=== PATIENT | female | born 2000 | race Hispanic/Latino ===

== ENCOUNTER 2020-05-11 11:28 | Emergency (ER) | payer SELFPAY ==
[2020-05-11 11:44] VITALS: BP 138/98; PULSE 79; RESP 16; TEMP 36.8; O2SAT 99
[2020-05-11 12:27] LABS: Add Urine Microscopic? YES; Appearance Urine Cloudy (Clear); Bacteria Urine Trace /hpf; Bilirubin Urine Negative (Negative); Blood Urine 3+ (Negative); Color Urine Yellow (Yellow); Glucose Urine UA Negative (Negative); Ketones Urine Negative (Negative); Leukocyte Esterase Ur Negative LEU/UL (Negative); Mucus Urine Rare /lpf; Nitrate Urine Negative (Negative); Protein Urine Negative (Negative); Specific Grav Ur 1.015 (1.001-1.035); Squamous Epithelial Cell Urine Moderate /hpf (Few); Urobilinogen Urine Negative mg/dL (<2.0)
--- NOTE | 2020-05-11 12:54 | ED.GENADULT ---
HPI - General Adult General Chief complaint: Recheck/Abnormal Lab/Rx <Roddy Xiao PA-C - Last Filed: 05/11/20 12:58> Stated complaint: STD check <Roddy Xiao PA-C - Last Filed: 05/11/20 12:58> Time Seen by Provider: 05/11/20 11:33 <Roddy Xiao PA-C - Last Filed: 05/11/20 12:58> Source: patient <Roddy Xiao PA-C - Last Filed: 05/11/20 12:58> Mode of arrival: ambulatory <Roddy Xiao PA-C - Last Filed: 05/11/20 12:58> Limitations: no limitations <Roddy Xiao PA-C - Last Filed: 05/11/20 12:58> History of Present Illness HPI narrative: Patient is a 20-year-old female who presents for desire for testing and treatment of possible STD noting some vaginal irritation suprapubic discomfort that is been present now for the last several days also noting foul odor has not been seen for this complaint would like to be tested and treated has no other complaints or concerns and on arrival is resting comfortably in the room in no distress <Roddy Xiao PA-C - Last Filed: 05/11/20 12:58> Related Data Home medications: Home Medications Medication Instructions Recorded Confirmed No Home Medications 05/11/20 05/11/20 <Roddy Xiao PA-C - Last Filed: 05/11/20 12:58> Allergies/adverse reactions: Allergies Allergy/AdvReac Type Severity Reaction Status Date / Time No Known Allergies Allergy Verified 05/11/20 11:55 <Roddy Xiao PA-C - Last Filed: 05/11/20 12:58> Review of Systems Review of Systems: All systems reviewed & are unremarkable except as noted in HPI and below <Roddy Xiao PA-C - Last Filed: 05/11/20 12:58> [facility] Social History Social History: Social History Smoking status: Current every day smoker Gender identity (if verbalized by the patient): Female <Roddy Xiao PA-C - Last Filed: 05/11/20 12:58> Exam Narrative: Exam Narrative: GENERAL: Well-appearing, well-nourished, and in no acute distress. HEAD: Normocephalic, atraumatic. EYES: PERRLA and EOMI. ENT: Nares clear, no rhinorrhea or epistaxis. Mucous membranes moist. CHEST: Clear to auscultation. No respiratory distress. No wheezes rales or rhonchi HEART: Regular rate and rhythm. No murmur heard. Normal peripheral pulses. ABDOMEN: Soft, nontender, nondistended FEMALE GENITOURINARY: Patient with some slight blood in the vaginal vault otherwise unremarkable exam EXTREMITIES: Normal range of motion. No edema. SKIN: Warm, dry, no rash. NEURO: No focal deficits. Alert and oriented x3. PSYCH: Normal mood and affect. <PEGGY Garcia Last Filed: 05/11/20 12:58> Course Course Emergency Course: Patient in the room in no distress aware of case findings treatment plan and diagnosis agreeing to follow-up as directed provided with reasons to return <PEGGY Garcia Last Filed: 05/11/20 12:58> Vital Signs Vital signs: Vital Signs Temperature 98.3 F 05/11/20 11:44 Pulse Rate 79 05/11/20 11:44 Respiratory Rate 16 05/11/20 11:44 Blood Pressure 138/98 H 05/11/20 11:44 Pulse Oximetry 99 05/11/20 11:44 Temperature 98.3 F 05/11/20 11:44 Pulse Rate 69 05/11/20 13:19 Respiratory Rate 16 05/11/20 13:19 Blood Pressure 119/59 L 05/11/20 13:19 Pulse Oximetry 100 05/11/20 13:19 <PEGGY Garcia Last Filed: 05/11/20 12:58> Vital Signs Temperature 98.3 F 05/11/20 11:44 Pulse Rate 79 05/11/20 11:44 Respiratory Rate 16 05/11/20 11:44 Blood Pressure 138/98 H 05/11/20 11:44 Pulse Oximetry 99 05/11/20 11:44 Temperature 98.3 F 05/11/20 11:44 Pulse Rate 69 05/11/20 13:19 Respiratory Rate 16 05/11/20 13:19 Blood Pressure 119/59 L 05/11/20 13:19 Pulse Oximetry 100 05/11/20 13:19 <Bri Rogers MD - Last Filed: 05/11/20 16:18> Medical Decision Making MDM Narrative Medical decision charlie
[2020-05-11] MEDS: cefTRIAXone 250 MG VIAL IM (13:12)
[2020-05-11] MEDS: LIDOCAINE HCL 1% LOCAL INJ 20 ML VIAL (13:12)
[2020-05-11] MEDS: AZITHROMYCIN 250 MG TABLET 1000 MG PO (13:13)
[2020-05-11] MEDS: metroNIDAZOLE 250 MG TABLET 2000 MG PO (13:13)
[2020-05-11 13:19] VITALS: BP 119/59; PULSE 69; RESP 16; O2SAT 100
== END 2020-05-11 13:20 | disposition home or self-care (01) ==
PROVIDERS: Emergency Medicine Emergency Medical Services; Emergency Provider Emergency Medicine
DX: N76.0 Acute vaginitis (principal)
CPT/HCPCS: 81001; 81025; 87070; 87491; 87591; 87808; 96372; 99284; A9270; J0696

== ENCOUNTER 2024-10-28 14:16 | Outpatient (CLI) | payer MEDICAID, SELFPAY | END 2024-10-28 14:17 | disposition home or self-care (01) | LOC: ANHLAB 14:23 | PROVIDERS: Visit Provider Obstetrics & Gynecology | DX: N91.2 Amenorrhea, unspecified (principal) | CPT/HCPCS: 36415; 84702 ==

== ENCOUNTER 2024-12-10 13:09 | Outpatient (CLI) | payer MEDICAID, SELFPAY ==
[2024-12-10 15:21] LABS: Glucose 1 Hour PP 50gm Dose 130 mg/dL
--- OUTSIDE RECORDS SUMMARY | 2024-12-12 00:59 | XMS_ITS | Encounter Summary ---
Author Organization [facility] Address [address] [place] [address] Care Team Providers Care Agricultural Technician Name Role Phone Unavailable Primary Care Provider Unavailabl e Reason for Referral * Consultation (Routine) - Authorized Specialty Diagnoses / Procedures Referred By Jyoti toledo Referred To Contact UTILITY DRIVER Oncology Diagnoses Ovarian cyst affecting , antepartum (HCC) 17 weeks gestation of (HCC) Vinicius Cavanaugh MD [address] [address] Referral ID Status Reason Start Date Expiration Date Visits Requested Visits Authorized [id number] Authorized Specialty Services Required 12/10/2024 12/10/2025 3 3 Scheduling Instructions Please schedule patient as soon as possible due to her being [id number] and possible need for surgery prior to 23-24 weeks EGA. Y CHILDHOOD TEACHER ASSISTANT * (Routine) - Open Specialty Diagnoses / Procedures Referred By Contra t Referred To Contact Diagnoses Ovarian cyst affecting , antepartum (HCC) Elevated hemoglobin A1c Encounter for anatomic survey ([facility]) Supervision of normal first , antepartum (HCC) Procedures SONOGRAM - COMPLETE Kylah Oreilly MD [address] [place] [address] Referral ID Status Reason Start Date Expiration Date Visits Re quested Visits Authorized [id number] Open 12/08/2024 12/08/2025 1 1 Y CHILDHOOD TEACHER ASSISTANT Encounter Details Date Type Department Care Team (Latest Contact Info) Description 12/10/2024 9:00 AM EARLY CHILDHOOD TEACHER ASSISTANT - 12/10/2024 9:17 AM EARLY CHILDHOOD TEACHER ASSISTANT Hospital Encounter [facility] [address] [place] [address] Vinicius Cavanaugh MD [address] [facility] [address] [place] [id number] Discharge Disposition: Home or Self Care Social History Tobacco Use Types Packs/Day Years Used Date Smoking Tobacco: Former Cigarettes Smokeless Tobacco: Never Alcohol Use Standard Drinks/Week Comments Not Currently 0 (1 standard drink = 0.6 oz pur e alcohol) Estimated Date of Delivery Comme nts Yes 05/16/2025 Based on Ultraso und Sex and Gender Information Value Date Recorded Sex Assigned at Not on file Gender Identity Not on file Sexual Orientation Not on file documented as of this encounter Plan of Treatment Upcoming Encounters Date Type Department Care Team (Late st Contact Info) Description 12/15/2024 1:00 PM EARLY CHILDHOOD TEACHER ASSISTANT Office Visit [facility] [employer] [address] [facility] [address] [place] [phone] Manuelito Escalona MD [address] [facility] [address] [place] [address] 01/07/2025 2:30 PM EARLY CHILDHOOD TEACHER ASSISTANT Appointment [facility] [address] [place] [id number] Scheduled Orders Name Type Priority Associated Diagnoses Orde r Schedule GLUCOSE CHALLENGE Lab Routine Ovarian cyst affecting , antepartum (HCC) 1 Occurrences starting 12/10/2024 until 12/05/2025 Scheduled Referrals Name Type Priority Associated Diagnoses Order Schedule AMB REFERRAL TO UTILITY DRIVER ONCOLOGY Outpatient Referral Routine Ovarian cyst affecting , antepartum (HCC) 17 weeks gestation of (HCC) 1 Occurrences starting 12/10/2024 until 12/10/2025 documented as of this encounter Procedures Procedure Name Priority Date/Time Associated Diagnosis Comments SONOGRAM - COMPLETE Routine 12/10/2024 9 :21 AM EARLY CHILDHOOD TEACHER ASSISTANT Ovarian cyst affecting , antepartum (HCC) Elevated hemoglobin A1c Encounter for anatomic survey ([facility]) Supervision of normal first , antepartum ([facility]) documented in this encounter Results * SONOGRAM - COMPLETE (12/10/2024 9:21 AM EARLY CHILDHOOD TEACHER ASSISTANT) Linked Results Indication ======== Maternal multicystic pelvic mass on outside scan Class I Obesity, On 11/18/2024 HgbA1c = 5.9% History ====== OB History ? 1 Lab Tests Test ? Date ? Result NIPT ? Low risk, Female Maternal Assessment Physical Exam ??Height 180 cm, 5 ft 11 in. Weight 112 kg, 248 lb. Initial weight 109 kg, 241 lb. BMI 34.59 kg/m?. Initial BMI 33.61 kg/m?. Weight gain 3 kg, 7 lb Method ====== Transabdominal and transvaginal ultrasound. View: Sufficient ========= Guthrie . Number of fetuses: 1 Dating ====== ? Date ?Details ? Gest. age ? ENE Stated ENE ? 17 w + 4 d ?05/16/2025 U/S ?12/10/2024 ? based upon AC, BPD, Femur, HC ? 17 w + 3 d ?05/17/2025 Assigned dating based on stated ENE, selected on 12/10/2024 ?17 w + 4 d ?05/16/2025 General Evaluation Cardiac activity present. FHR 149 bpm. Presentation: breech Placenta: Placental site: anterior Umbilical cord: Cord vessels: 3 vessel cord. Insertion site: normal insertion Amniotic fluid: Amount of AF: normal. MVP 3.0 cm Biometry BPD ?38.4 ?mm ?17w 5d ??56% ? Hadlock HC ? 139.0 ?? mm ?17w 2d ??26% ? Hadlock Cerebellum tr ?16.9 ?mm ?35% ? [place] AC ? 114.0 ?? mm ?17w 1d ??35% ? Hadlock Femur ?25.4 ?mm ?17w 5d ??50% ? Hadlock Humerus ?25.8 ?mm ?18w 1d ??78% ? Denise HC / AC ?1.22 ?14w 4d ??71% ? Hadlock Weight Calculation: EFW ?194 ? g ? 34% ? Hadlock EFW (lb,oz) ?0 lb 7 ??oz EFW by ? Hadlock ([id number]) appropriate Growth Overview Exam date ?GA ?BPD (mm) ?HC (mm) AC (mm) FL (mm) HL (mm) EFW (g) 12/10/2024 ? 17w 4d ??38.4 ?56% ? 139 ? 26% ? 114 ? 35% ? 25.4 ?50% ? 25.8 ?78% ? 194 ? 34% Anatomy The following structures appear normal: Head / Neck ?Cranium. Lateral ventricles. Choroid plexus. Cerebellum. Heart / Thorax 4-chamber view. Abdomen ?Cord insertion. Stomach. Kidneys. Bladder. Extremities / Skeleton Arms. Legs. Maternal Structures Cervix ? reassuring ? Approach - Transvaginal: Cervical length 4.50 cm Right Ovary ?Visualized Left Ovary ? Not visualized Impression ========= * Guthrie IUP at 17 weeks of gestation by stated EDC from early U/S * Referred to [facility] for obstetrical U/S & request for consult secondary to: Maternal pelvic mass * Today's ultrasound (U/S) findings: Living guthrie intrauterine fetus growth is in the normal range Amniotic fluid volume appears normal Basic anatomic survey appears normal, but is incomplete Endovaginal U/S was performed to better assess cervix & placenta & pelvic mass Functional cervical length is normal-range Placenta is clear of the internal cervical os by > 2 cm Maternal pelvic retro-uterine multiseptated cystic adnexal masses Overal size [id number] mm, cyst diameter measures up to 25 mm Unable to view normal LT and RT ovaries Findings are most c/w theca lutein cysts, but cannot rule out other entities COUNSELING & RECOMMENDATIONS (PLEASE SEE FULL CONSULT IN EPIC) * In my best medical opinion, I would advise: Regarding the maternal pelvic mass: The mass appears most c/w theca lutein cysts, but not typical presentation I am concerned about later development of symptoms & obstruction of labor My inclination would be surgery, but will refer SHERI & defer to UTILITY DRIVER/ONC At present we will not order serum tumor markers Smoking (cigarettes, cannabis) cessation was strongly encouraged Start low-dose aspirin preeclampsia prophylaxis 162 mg/day Screen early for gestational diabetes mellitus (GDM); if negative, repeat @ 24-28 weeks Comprehensive anatomic survey with MFM & FRONT END UI DEVELOPER visit at 21 weeks Delivery planning (timing, mode, location): too early to determine at present Follow-up ======== comprehensive anatomy in 4 weeks Coding ====== Procedures ? 78534: US Preg Uterus >14 weeks ? 39135: US Preg Uterus Transvaginal LINK PACS Anatomical Region Laterality Modality Other 12/10/2024 9:21 AM EARLY CHILDHOOD TEACHER ASSISTANT R Pal Oreilly MD MFM ORDERABLES documented in this encounter Visit Diagnoses Diagnosis 17 weeks gestation of (HCC)- Primary state, incidental Ovarian cyst affecting , antepartum (HCC) Elevated hemoglobin A1c Other abnormal blood chemistry Encounter for anatomic survey (HCC) Encounter for anatomic survey Supervision of normal first , antepartum (HCC) documented in this encounter
--- OUTSIDE RECORDS SUMMARY | 2024-12-12 00:59 | XMS_ITS | Patient Health Summary ---
Author Organization [facility] Address [address] [facility] [place] [address] Care Team Providers Care Veneer Clipper Helper Name Role Phone Unavailable Primary Care Provider Unavailabl e [facility]non-owned Affiliates and Associated Physician Practices is amultiple site organization consisting of ambulatory clinics and hospital sitesin [place], [place] and [place]. This disclosure is being madepursuant to the Care Everywhere program and may not contain all information available regarding this patient. Last updated 18.[facility] DNA SEQ Allergies No known active allergies Medications * Be aware that medications may not be up to date on this document. Alwaysverify current medications with the patient. * Vit-DSS-Fe Fum-FA ( vitamin with iron) tablet Take 1 (one) tablet by mouth once daily Reasons: * calcium carbonate (Caltrate) 600 MG tablet Take 1 (one) tablet by mouth daily with food * ondansetron (Zofran) 4 MG tablet Take 1 (one) tablet by mouth every 6 hours as needed for Nausea/Vomiting Takes PRN, not needed today 12/10/24 Reasons: Nausea and Vomiting in * vitamin D3 (Cholecalciferol) 10 MCG (400 UNIT) tablet Take 1 (one) tablet by mouth once daily Social History Tobacco Use Types Packs/Day Years [...] on file Sexual Orientation Not on file Last Filed Vital Signs Vital Sign Reading Time Taken Comments Blood Pressure 116/67 12/10/2024 10:02 AM DREDGE MATE Pulse 78 12/10/2024 10:02 AM DREDGE MATE Temperature - - Respiratory Rate - - Oxygen Saturation 100% 12/10/2024 10:02 AM DREDGE MATE Inhaled Oxygen Concentration - - Weight 112.5 kg (248 lb) 12/10/2024 10:02 AM DREDGE MATE Height 181.6 cm (5' 11.5 ) 12/10/2024 10:[address] Body Mass Index 34.11 12/10/2024 10:02 AM DREDGE MATE Procedures * SONOGRAM - COMPLETE(Performed 12/10/2024) Performed for Ovarian cyst affecting , antepartum ([facility]), Elevated hemoglobin A1c, Encounter for anatomic survey ([facility]), Supervision of normal first , antepartum ([facility]) Results * SONOGRAM - COMPLETE (12/10/2024 9:21 AM DREDGE MATE) Linked Results Indication ======== Maternal multicystic pelvic [...] lb 7 ??oz EFW by ? Hadlock ([id number]) appropriate Growth Overview Exam date ?GA ?BPD [...] EDC from early U/S * Referred to [facility] for obstetrical U/S & request for [...] retro-uterine multiseptated cystic adnexal masses Overal size [id number] mm, cyst diameter measures up to 25 [...] but will refer SHERI & defer to SKIDDER LOADER/ONC At present we will not order serum tumor markers Smoking (cigarettes, cannabis) cessation was strongly encouraged Start low-dose aspirin preeclampsia prophylaxis 162 mg/day Screen early for gestational diabetes mellitus (GDM); if negative, repeat @ 24-28 weeks Comprehensive anatomic survey with MFM & LAMINATING MACHINE OPERATOR visit at 21 weeks Delivery planning (timing, mode, location): too early to determine at present Follow-up ======== comprehensive anatomy in 4 weeks Coding ====== Procedures ? 24032: US Preg Uterus >14 weeks ? 10316: US Preg Uterus Transvaginal Yunait PACS Anatomical Region Laterality Modality Other 12/10/2024 9:21 AM DREDGE MATE R Pal Oreilly MD M ORDERABLES
--- OUTSIDE RECORDS SUMMARY | 2024-12-12 00:59 | XMS_ITS | Referral Summary ---
Author Organization [facility] Address [address] [place] [address] Care Team Providers Care Gift Officer Name Role Phone Joaquin Santos MD Primary Care Provider [phone] Allergies No known active allergies Medications hydrOXYzine (VISTARIL) 25 mg capsule Take 25 mg by mouth 3 (three) times a day as needed for itching Active Social History Tobacco Use Types Packs/Day Years Used Date Smoking Tobacco: Some Days Cigarettes Smokeless Tobacco: Never Alcohol Use Standard Drinks/Week Comments Yes 0 (1 standard drink = 0.6 oz pur e alcohol) Personal Safety Answer Date Recorded Have you ever been in or are you currently in a harmful physical or emotional relationship or is someone making you feel afraid or unsafe? Denies 05/13/2024 Comments No Sex and Gender Information Value Date Recorded Sex Assigned at Not on file Legal Sex Female 6:51 PM SURGICAL PRODUCT SALES CONSULTANT Gender Identity Not on file Sexual Orientation Not on file Last Filed Vital Signs Vital Sign Reading Time Taken Comments Blood Pressure 133/83 05/13/2024 3:48 PM CDT Pulse 52 05/13/2024 3:48 PM CDT Temperature 37.1 ??C (98.8 ??F) 05/13/2024 1:24 PM CD T Respiratory Rate 18 05/13/2024 3:48 PM CDT Oxygen Saturation 96% 05/13/2024 3:48 PM CDT Inhaled Oxygen Concentration - - Weight 108.9 kg (240 lb 1.3 oz) 05/13/2024 1:24 PM CDT Height 180.3 cm (5' 11 ) 05/13/2024 1:24 PM CDT Body Mass Index 33.48 05/13/2024 1:24 PM CDT Plan of Treatment Not on file Insurance IDPA Care Teams Gift Officer Relationship Specialty Start Date End Date Joaquin Santos MD PCP - General 12/18/19
--- OUTSIDE RECORDS SUMMARY | 2024-12-12 00:59 | XMS_ITS | Encounter Summary ---
Author Organization [facility] Address [address] [place] [address] Care Team Providers Care 2Nd Pressman Name Role Phone Unavailable Primary Care Provider Unavailabl e Reason for Referral * Consultation (Routine) - Authorized Specialty Diagnoses / Procedures Referred By Contac t Referred To Contact Diagnoses Ovarian cyst affecting , antepartum (HCC) Elevated hemoglobin A1c Encounter for anatomic survey (HCC) Supervision of normal first , antepartum (HCC) Kylah Oreilly MD [address] [place] [address] Referral ID Status Reason Start Date Expiration Date Visits Requested Visits Authorized [id number] Authorized Specialty Services Required 12/08/2024 12/08/2025 3 3 TRONICS PROCESSING SUPERVISOR * (Routine) - Open Specialty Diagnoses / Procedures Referred By Jyoti toledo Referred To Contact Diagnoses Ovarian cyst affecting , antepartum (HCC) Elevated hemoglobin A1c Encounter for anatomic survey (HCC) Supervision of normal first , antepartum (HCC) Procedures SONOGRAM - COMPLETE Kylah Oreilly MD [address] [place] [address] Referral ID Status Reason Start Date Expiration Date Visits Re quested Visits Authorized [id number] Open 12/08/2024 12/08/2025 1 1 TRONICS PROCESSING SUPERVISOR Reason for Visit * Reason Comments Ultrasound Maternal Medicine Consultation Encounter Details Date Type Department Care Team (Latest Contact Info) Description 12/10/2024 9:18 AM ELECTRONICS PROCESSING SUPERVISOR - 12/10/2024 11:59 PM ELECTRONICS PROCESSING SUPERVISOR Hospital Encounter [facility] [address] [id number] Vinicius Cavanaugh MD [address] [address] Discharge Disposition: Home or Self Care Social [...] on file documented as of this encounter Last Filed Vital Signs Vital Sign Reading Time Taken Comments Blood Pressure 116/67 12/10/2024 10:02 AM ELECTRONICS PROCESSING SUPERVISOR Pulse 78 12/10/2024 10:02 AM ELECTRONICS PROCESSING SUPERVISOR Temperature - - Respiratory Rate - - Oxygen Saturation 100% 12/10/2024 10:02 AM ELECTRONICS PROCESSING SUPERVISOR Inhaled Oxygen Concentration - - Weight 112.5 kg (248 lb) 12/10/2024 10:02 AM ELECTRONICS PROCESSING SUPERVISOR Height 181.6 cm (5' 11.5 ) 12/10/2024 10:02 AM C Body Mass Index 34.11 12/10/2024 10:02 AM ELECTRONICS PROCESSING SUPERVISOR documented in this encounter Medications at Time of Discharge Medication Sig Dispensed Refills Start Date End Date calcium carbonate (Caltrate) 600 MG tablet Take 1 (one) tablet by mouth daily with food ondansetron (Zofran) 4 MG tabletIndications:Nausea and/or Vomiting in Take 1 (one) tablet by mouth every 6 hours as needed for Nausea/Vomiting Takes PRN, not needed today 12/10/24 Reasons: Nausea and Vomiting in Vit-DSS-Fe Fum-FA ( vitamin with iron) tabletIndications:Pregna ncy Take 1 (one) tablet by mouth once daily Reasons: vitamin D3 (Cholecalciferol) 10 MCG (400 UNIT) tablet Take 1 (one) tablet by mouth once daily documented as of this encounter Progress Notes * Alisa Roland RN - 12/10/2024 10:06 AM CST Patient here with sig. Other, Arun for provider visit and ultrasound . Denies contractions, deniesbleeding, leakage of fluid, and starting to feel good movement. RN reviewed preeclampsia precautions and baby blues, handouts given. Patient reports headaches and visual disturbances at times due to ocular migraines. Denies it today. Denies RUQ pain. 12/10/24 Low risk/ Fe, NIPT seen in care everywhere. Patient's mother and father have hypertension. She reports she has been told in past that she had elevated blood pressures, however, no official diagnosis. Patient blood pressure today is WNL. Blood pressure on 11/18/24 at primary OB office was 106/71. Patient reports her HgA1c was elevated in beginning of and OB told her she will have early 1 hr GCT around 20 weeks. Urine dip today negative ketones, protein, glucose, leukoyctes and blood. Patient Vitals for the past 6 hrs: Pulse BP 12/10/24 1002 78 116/[address] Cavanaugh for patient to have 1 hr GCT and sheri appt to box office attendant oncology for ovarian cyst. 1 Hr GCT lab requisition was sent with patient today. Patient informed that box office attendant onco will reach outto her to schedule. In basket sent to OB BL box office attendant onco schedulers as well as Joyce Morales. Alisa Roland RN 12/10/2024 10:08 AM TRONICS PROCESSING SUPERVISOR documented in this encounter Consult Notes * Vinicius Cavanaugh MD - 12/10/2024 11:22 AM CST M CONSULT * Guthrie IUP at 17 weeks of gestation by stated EDC from early U/S * Referred to [facility] for obstetrical U/S & request for consult [...] retro-uterine multiseptated cystic adnexal masses Overal size [id number] mm, cyst diameter measures up to 25 mm Unable to view normal LT and RT ovaries Findings are most c/w theca lutein cysts, but cannot rule out other entities PAST MEDICAL & OBSTETRICAL HISTORY * Medications: vitamins & calcium & D3 & PRN Zofran * Past Medical History (PMH): No CHTN, no DM, no thyroidopathy, no asthma, no VTE, no SLE Pre- obesity Class I, BMI = 30.0-34.9 Maternal adnexal mass in Adnexal mass first diagnosed on 11/18/2024 at 14 week U/S Family history of ovarian or breast cancer: none History of medical ovulation induction: no Maternal age is currently 24 years Symptoms (e.g. pain): not at present, previously had RLQ cramping Laboratory data: no serum markers * Past Surgical History: tonsils * Past Gynecologic History: no conization, no LEEP, no D&C * Past Obstetrical History: G1 current , reportedly low-risk cf-DNA * Family history of anomalies, syndromes, MR, CA, etc: Her parents have DM and/or cHTN Her sister had surgery age 17 years teratoma * Social History: Quit tobacco & cannabis use * Physical Examination: BP = 116/67 mmHg, P = 78 bpm, Wt = 220# * Laboratory data: Today urine dipstick: glucose (0), ketones (0), protein (0), blood (0), leukocytes (0) I did review available laboratory results, on 11/18/2024 the HgbA1c = 5.9% ASSESSMENT Guthrie IUP at 17 weeks of gestation by stated EDC from early U/S Today's U/S shows a maternal large retro-uterine multicystic mass COUNSELING & RECOMMENDATIONS (PLEASE SEE FULL CONSULT IN EPIC) * In my best medical opinion, I would advise: Regarding the maternal pelvic mass: The mass appears most c/w theca lutein cysts, but not typical presentation I am concerned about later development of symptoms & obstruction of labor My inclination would be surgery, but will refer SHERI & defer to SPECIALTY FOODS COOK/ONC At present we will not order serum tumor markers Smoking (cigarettes, cannabis) cessation was strongly encouraged Start low-dose aspirin preeclampsia prophylaxis 162 mg/day Screen early for gestational diabetes mellitus (GDM); if negative, repeat @ 24- 28 weeks Comprehensive anatomic survey with MFM & DIRECTOR OF CLINICAL EDUCATION visit at 21 weeks Delivery planning (timing, mode, location): too early to determine at present COMMENTS * Thank you very much for requesting MF participation in her obstetrical care * Findings were explained & questions were addressed & precautions were given to patient * U/S does not detect all structural, genetic & functional [id number] abnormalities * Telemedicine services were performed for this U/S examination & MFM consultation Patient's identity was confirmed at the MFM office Appropriateness of the telehealth consult was confirmed Informed consent for telemedicine services was obtained & scanned into EMR Modality was secure interactive audio-video session using [email or web address] Patient site location was [facility] & nurse presenter was Aylin De Young Distant site provider was Vinicius Cavanaugh MD & location was home office Others present at the patient site included the patient's partner Consult = 45 minutes total time, including record review & counseling & coordination of care GENERAL NOTES REGARDING CLINICAL CONDITIONS * Adnexal mass in : Reported incidence is 0.1% to 3% of live births Majority of adnexal cysts in T1 resolve by early T2 Majority of persistent masses >= 5 cm are mature teratomas Risk of malignancy ranges & varies by risk factors Risk of malignancy in one study of 557 women: Simple masses ~ 1%, Complex masses ~ 9% Majority of malignant adnexal masses have a favorable prognosis Most have a low risk of malignancy or acute complications & may be managed expectantly Several studies have examined expectant management of adnexal masses in Most (51-92%) adnexal masses will resolve during Predictors of persistence: size > 5 cm and complex morphology on transvaginal U/S The occurrence of acute complications was < 2% Prevalence of adnexal masses in women is 0.05-3.2% of live births Most common pathologic diagnoses: mature teratomas & paraovarian or corpus luteum cysts Malignancy is diagnosed in 1 to 7% of patients with persistent masses A review of adnexal masses in ([place] 2022) reported: The most common types of adnexal masses in requiring surgical management are Dermoid cysts (32%), endometriomas (15%) Functional cysts (12%), serous cystadenomas (11%), mucinous cystadenomas (8%) Approximately 2% of adnexal masses in are malignant Evaluation by imaging techniques: Most cases of adnexal masses can be evaluated by U/S alone U/S findings that raise concern regarding malignancy include: Cyst size greater than 10 cm, Presence of ascites Papillary or solid components, irregularity, high color Doppler flow Pelvic MRI may be useful in some cases (e.g. suspected pedunculated uterine myoma) Serum cancer markers & : CEA, inhibin B, anti-M??llerian hormone are not affected by LDH usually is unaffected by , but can be increased with preeclampsia Cancer antigen 125 (CA 125) may be elevated during early gestation & immediately CA 125 is elevated in most cases of epithelial ovarian cancer (EOC) May be helpful as a tumor marker of EOC between 15 weeks & delivery In the range of 1,000 to 10,000 U/mL is likely (but not invariably) related to cancer In the range of 75 to 150 U/mL could be either -related or due to cancer Alpha-fetoprotein (AFP) can be elevated with ovarian germ cell tumor Inhibin A can be elevated with ovarian germ cell tumor Risks of management options include: Expectant: delayed diagnosis, torsion, rupture & distant spead, PTD, obstructed labor Surgery: small risk of miscarriage, especially if done in non-emergent circumstances Most adnexal masses in (2016 ACOG PB-174): Appear to have a low risk of malignancy or acute complications May be managed expectantly One approach to management of an adnexal mass in (UpToDate): Surgical resection of asymptomatic masses present after the 1st-trimester that: Have a diameter > 10 cm, or Contain concerning features (i.e. solid, solid/cystic, papillary, or septae) Laparoscopy & laparotomy may be considered for surgical management Expectant management of asymptomatic suspected corpus luteal cyst, endometrioma, mature teratoma Theca lutein cysts May also be referred to as lutein cysts or hyperreactio luteinalis Can be seen with GTD, multiple gestation, ovarian hyperstimulation, hydrops Can occur in a normal due to hypersensitivity to hCG Typically presents as bilateral ovarian enlargement, usually in the 3rd-trimester Most cases of theca lutein cysts are asymptomatic during May cause maternal virilization, hyperemesis gravidarum, preeclampsia, thyroid dysfunction Cysts usually resolve weeks to months after delivery If the mass remains large & posterior to the cervix, vaginal delivery may be unfeasible References cited in this section: The 2016 ACOG Practice Bulletin #174 Evaluation and management of adnexal masses https://www.uptodate.com/contents/lwseooh-hvhf-bv-?search... Nakul et al. Adnexal masses during ... Am J Obstet Gynecol 2022;228:601-612. Vinicius Cavanaugh MD Professor, CAREER DEVELOPMENT MANAGER [facility] TRONICS PROCESSING SUPERVISOR documented in this encounter Plan of Treatment Upcoming Encounters Date Type Department Care Team (Late st Contact Info) Description 12/15/2024 1:00 PM ELECTRONICS PROCESSING SUPERVISOR Office Visit [facility] - CAREER DEVELOPMENT MANAGER [address] [place] [address] Manuelito Escalona MD [address] [facility] [address] [place], [place] [id number] 01/07/2025 2:30 PM ELECTRONICS PROCESSING SUPERVISOR Appointment [facility] [address] [place], [place] [id number] Scheduled Referrals Name Type Priority Associated Diagnoses Order Schedule AMB REFERRAL TO MATERNAL- MEDICINE Outpatient Referral Routine Ovarian cyst affecting , antepartum (HCC) Elevated hemoglobin A1c Encounter for anatomic survey (HCC) Supervision of normal first , antepartum (HCC) 1 Occurrences starting 12/08/2024 until 12/08/2025 documented as of this encounter Results * SONOGRAM - COMPLETE (12/10/2024 9:21 AM ELECTRONICS PROCESSING SUPERVISOR) Linked Results Indication ======== Maternal multicystic pelvic [...] lb 7 ??oz EFW by ? Hadlock ([id number]) appropriate Growth Overview Exam date ?GA ?BPD [...] EDC from early U/S * Referred to MFM for obstetrical U/S & request for consult [...] retro-uterine multiseptated cystic adnexal masses Overal size [id number] mm, cyst diameter measures up to 25 [...] but will refer SHERI & defer to SPECIALTY FOODS COOK/ONC At present we will not order serum tumor markers Smoking (cigarettes, cannabis) cessation was strongly encouraged Start low-dose aspirin preeclampsia prophylaxis 162 mg/day Screen early for gestational diabetes mellitus (GDM); if negative, repeat @ 24-28 weeks Comprehensive anatomic survey with MFM & DIRECTOR OF CLINICAL EDUCATION visit at 21 weeks Delivery planning (timing, mode, location): too early to determine at present Follow-up ======== comprehensive anatomy in 4 weeks Coding ====== Procedures ? 87341: US Preg Uterus >14 weeks ? 62495: US Preg Uterus Transvaginal [facility] [employer] PACS Anatomical Region Laterality Modality Other 12/10/2024 9:21 AM ELECTRONICS PROCESSING SUPERVISOR R Pal Oreilly MD [facility] ORDERABLES documented in this encounter Visit Diagnoses Diagnosis Ovarian cyst affecting , antepartum (HCC)- Primary Elevated hemoglobin A1c Other abnormal blood chemistry Encounter for anatomic survey (HCC) Encounter for anatomic survey Supervision of normal first , antepartum (HCC) documented in this encounter
--- OUTSIDE RECORDS SUMMARY | 2024-12-12 00:59 | XMS_ITS | Clinical Summary ---
Author Organization [facility] Address [address] [place] [address] Care Team Providers Care Pharmacist Helper Name Role Phone Unavailable Primary Care Provider Unavailabl e Source Comments [facility],non-owned Affiliates and Associated Physician Practices is amultiple site organization consisting of ambulatory clinics and hospital sitesin [place], [place], [place] and [place]. This disclosure is being madepursuant to the Care Everywhere program and may not contain all information available regarding this patient. Last updated 18.[facility] Allergies No known active allergies Medications * Be aware that medications may not be up to date on this document. Alwaysverify current medications with the patient. Medication Sig Dispensed Refills Start Date End Date Status Vit-DSS-Fe Fum-FA ( vitamin with iron) tabletIndications:Pre gnancy Take 1 (one) tablet by mouth once daily Reasons: Active calcium carbonate (Caltrate) 600 MG tablet Take 1 (one) tablet by mouth daily with food Active ondansetron (Zofran) 4 MG tabletIndications:[place] sea and/or Vomiting in Take 1 (one) tablet by mouth every 6 hours as needed for Nausea/Vomiting Takes PRN, not needed today 12/10/24 Reasons: Nausea and Vomiting in Active vitamin D3 (Cholecalciferol) 10 MCG (400 UNIT) tablet Take 1 (one) tablet by mouth once daily Active Encounters Date Type Department Care Team Description 12/10/2024 9:18 AM SCARF AND ANNEAL OPERATOR - 12/10/2024 11:59 PM SCARF AND ANNEAL OPERATOR Hospital Encounter [facility] [address] [place] [address] Vinicius Cavanaugh MD Discharge Disposition: Home or Self Care 12/10/2024 9:00 AM SCARF AND ANNEAL OPERATOR - 12/10/2024 9:17 AM SCARF AND ANNEAL OPERATOR Hospital Encounter [facility] [address] [place] [address] Vinicius Cavanaugh MD Discharge Disposition: Home or Self Care from Last 3 Months Family History Medical History Relation Name Comments Hypertension Father Hypertension Mother Relation Name Status Comments Father Alive Mother Alive Social History Tobacco Use Types Packs/Day Years [...] Comments Blood Pressure 116/67 12/10/2024 10:02 AM SCARF AND ANNEAL OPERATOR Pulse 78 12/10/2024 10:02 AM SCARF AND ANNEAL OPERATOR Temperature - - Respiratory Rate - - Oxygen Saturation 100% 12/10/2024 10:02 AM SCARF AND ANNEAL OPERATOR Inhaled Oxygen Concentration - - Weight 112.5 kg (248 lb) 12/10/2024 10:02 AM SCARF AND ANNEAL OPERATOR Height 181.6 cm (5' 11.5 ) 12/10/2024 10:31 AM [facility] Body Mass Index 34.11 12/10/2024 10:02 AM SCARF AND ANNEAL OPERATOR Plan of Treatment Upcoming Encounters Date Type Department Care Team (Late st Contact Info) Description 12/15/2024 1:00 PM SCARF AND ANNEAL OPERATOR Office Visit [facility] - LINE MAINTAINER [address] [facility] [address] [place] [phone] Manuelito Escalona MD [address] [facility] [address] [place] [address] 01/07/2025 2:30 PM SCARF AND ANNEAL OPERATOR Appointment [facility] [address] [place] [address] Health Maintenance Due Date Last Done Comments HIV SCREENING 2013 HPV VACCINE (1 - 3-dose series) 2013 HEPATITIS C SCREENING 01/26/2016 DTAP/TDAP/TD VACCINES (1 - Tdap) 2017 HEPATITIS B VACCINE (1 of 3 - 19+ 3-dose series) 2017 COVID-19 VACCINE (2023-2 5 season) 2024 INFLUENZA VACCINE (#1) 2024 5, 10/09/2011 DEPRESSION SCREENING 11/19/2024 PAP SMEAR 11/18/2027 11/18/2024, 11/18/2024 ZOSTER VACCINE (1 of 2) 01/31/2048 HIB VACCINE Aged Out No longer eligi ble based on patient's age to complete this topic MENINGOCOCCAL (Group B) VACCINE Aged Out No longer eligible b ased on patient's age to complete this topic MENINGOCOCCAL VACCINE Aged Out No rhea polo eligible based on patient's age to complete this topic PNEUMOCOCCAL VACCINE Aged Out No long er eligible based on patient's age to complete this topic Respiratory Syncytial Virus (RSV) Vaccine Pt: or over 60 yrs (No Doses Required) Completed Procedures Procedure Name Priority Date/Time Associated Diagnosis Comments SONOGRAM - COMPLETE Routine 12/10/2024 9 :21 AM SCARF AND ANNEAL OPERATOR Ovarian cyst affecting , antepartum (HCC) Elevated hemoglobin A1c Encounter for anatomic survey (HCC) Supervision of normal first , antepartum (HCC) from Last 3 Months Results * SONOGRAM - COMPLETE (12/10/2024 9:21 AM SCARF AND ANNEAL OPERATOR) Linked Results Indication ======== Maternal multicystic pelvic [...] lb 7 ??oz EFW by ? Hadlock ([id number]) appropriate Growth Overview Exam date ?GA ?BPD [...] EDC from early U/S * Referred to M for obstetrical U/S & request for consult [...] retro-uterine multiseptated cystic adnexal masses Overal size [id number] mm, cyst diameter measures up to 25 [...] but will refer SHERI & defer to CLIENT SERVICES ANALYST/ONC At present we will not order serum tumor markers Smoking (cigarettes, cannabis) cessation was strongly encouraged Start low-dose aspirin preeclampsia prophylaxis 162 mg/day Screen early for gestational diabetes mellitus (GDM); if negative, repeat @ 24-28 weeks Comprehensive anatomic survey with MFM & STACKER TENDER visit at 21 weeks Delivery planning (timing, mode, location): too early to determine at present Follow-up ======== comprehensive anatomy in 4 weeks Coding ====== Procedures ? 25152: US Preg Uterus >14 weeks ? 71777: US Preg Uterus Transvaginal [employer] PACS Anatomical Region Laterality Modality Other 12/10/2024 9:21 AM SCARF AND ANNEAL OPERATOR R Pal TALAVERA ORDERABLES from Last 3 Months
--- OUTSIDE RECORDS SUMMARY | 2024-12-12 00:59 | XMS_ITS | Data Portability ---
Author Organization [facility] Address [address] [place] [address] [place] [address] Assessment Encounter Date Assessment Date Assessment LastModified by Organization Details LastModified Time 12/04/2024 12/04/2024 Patient is ___weeks . Discussed plan. Not available 12/04/2024 14:12:35 Plan of Treatment Reminders Order Date Submit Date Provider Last Modified By Organization Details Last Modified Time Details Appointments U/S OB BASELIN E 2024 03:00P M ULTRASOUND Not available Not available Not available OB ROUTINE 2024 04:00P M Lula OREILLY MD Not available Not available Not available Lab drug screen, urine [address], [address], [place], [address], 11/18/2024 13:47:12 Referral None recorde d. Procedures None recorde d. Surgeries None recorde d. Imaging US, obstetr ic, transva ginal 2023 024 [email or web address] [facility], [address], [place], [address], 11/18/2024 14:00:21 US, obstetr ic, limited 2023 024 [email or web address] [address], [address], [place], [address], 11/18/2024 14:00:21 Medication Orders ondanse halima 8 mg disinte grating tablet [address] [id number], [address], [place], [place], [id number], 11/18/2024 12:33:02 Patient TargetsNo targets recorded. Patient InstructionsNo instructions recorded. Reason for Referral None Reported. Results Created Date Observation Date Name Description Value Unit Range Abnormal Flag Note LastModifiedBy Organization Detail LastModifiedTime 11/24/1911/24/2024 [UNIT Y] ANEUP LOIDY NIPT fraction 6.1% normal Not Available [facility] [address] [place] [address], [place], [address], 11/24/2024 21:08:33 11/24/19 25 11/24/2024 [UNIT Y] ANEUP LOIDY NIPT 22Q11.2 microdeletio n LOW RISK <1 in 10,000 normal Not Available [facility] [address] [facility], [place], [address], 11/24/2024 21:08:33 11/24/19 25 11/24/2024 [UNIT Y] ANEUP LOIDY NIPT sex chromosome aneuploidy NOT DETECT ED normal Not Available [facility] [address] [facility], [place], [address], 11/24/2024 21:08:33 11/24/19 25 11/24/2024 [UNIT Y] ANEUP LOIDY NIPT monosomy X LOW RISK <1 in 10,000 normal Not Available [facility] [address] [facility], [place], [address], 11/24/2024 21:08:33 11/24/19 25 11/24/2024 [UNIT Y] ANEUP LOIDY NIPT trisomy 13 LOW RISK <1 in 10,000 normal Not Available [facility] [address] [facility], [place], [address], 11/24/2024 21:08:33 11/24/19 25 11/24/2024 [UNIT Y] ANEUP LOIDY NIPT trisomy 18 LOW RISK <1 in 10,000 normal Not Available [facility] [address] [facility], [place], [address], 11/24/2024 21:08:33 11/24/19 25 11/24/2024 [UNIT Y] ANEUP LOIDY NIPT trisomy 21 LOW RISK <1 in 10,000 normal Not Available [facility] [address] [facility], [place], [address], 11/24/2024 21:08:33 11/24/19 25 11/24/2024 [UNIT Y] ANEUP LOIDY NIPT sex FEMALE normal Not Available [facility] [address] [facility], [place], [address], 11/24/2024 21:08:33 11/24/19 25 11/24/2024 [UNIT Y] ANEUP LOIDY NIPT gestation SINGLE TON normal Not Available [facility] [address] [facility], [place], [address], 11/24/2024 21:08:33 11/24/19 25 11/24/2024 [UNIT Y] ANEUP LOIDY NIPT for detailed report, see pdf See PDF normal Not Available [facility] [address] [facility], [place], [address], 11/24/2024 21:08:33 11/27/19 25 11/27/2024 [UNIT Y] HUE RODRIGUEZ N sickle cell disease/beta -thalassemia /hemoglobino pathies carrier screen NEGATI VE normal Not Available [facility] [address] [facility], [place], [address], 11/27/2024 13:14:17 11/27/19 25 11/27/2024 [UNIT Y] HUE RODRIGUEZ N alpha-thalas semia carrier screen NEGATI VE normal Not Available [facility] [address] [facility], [place], [address], 11/27/2024 13:14:17 11/27/19 25 11/27/2024 [UNIT Y] HUE Gale cystic fibrosis carrier screen NEGATI VE normal Not Available [facility] [address], [place], [address], 11/27/2024 13:14:17 11/27/19 25 11/27/2024 [UNIT Y] HUE Gale spinal muscular atrophy carrier screen NEGATI VE 2 SMN1 copies , SNP not presen t normal Not Available [facility] [address], [place], [address], 11/27/2024 13:14:17 11/27/19 25 11/27/2024 [UNIT Y] HUE LUISA Gale for detailed report, see pdf See PDF normal Not Available [facility] [address], [place], [address], 11/27/2024 13:14:17 11/18/20 24 11/18/2024 CBC W/DIF F WBC 10.2 10'3/ uL 3.5-10 .5 Not Available [facility] (Lab) [address], [place], [address], 11/19/2024 13:10:12 11/18/20 24 11/18/2024 CBC W/DIF F RBC 4.96 10'6/ uL (based on docume nted legal sex) 3.80-5 .20 Not Available [facility] (Lab) [address], [place], [address], 11/19/2024 13:10:12 11/18/20 24 11/18/2024 CBC W/DIF F HGB 13.5 g/dL (based on docume nted legal sex) 11.6-1 5.4 Not Available [facility] (Lab) [address] [place], [address], 11/19/2024 13:10:12 11/18/20 24 11/18/2024 CBC W/DIF F HCT 42.2 % (based on docume nted legal sex) 34.0-4 5.0 Not Available [facility] (Lab) [address], [place], [address], 11/19/2024 13:10:12 11/18/20 24 11/18/2024 CBC W/DIF F MCV 85.1 fL 80.0-9 9.0 Not Available [facility] (Lab) [address], [place], [address], 11/19/2024 13:10:12 11/18/20 24 11/18/2024 CBC W/DIF F MCH 27.2 pg 27.0-3 4.0 Not Available [facility] (Lab) [address], [place], [address], 11/19/2024 13:10:12 11/18/20 24 11/18/2024 CBC W/DIF F MCHC 32.0 g/dL 32.0-3 5.5 Not Available [facility] (Lab) [address], [place], [address], 11/19/2024 13:10:12 11/18/20 24 11/18/2024 CBC W/DIF F RDW 13.2 % 11.0-1 5.0 Not Available [facility] (Lab) [address], [place], [address], 11/19/2024 13:10:12 11/18/20 24 11/18/2024 CBC W/DIF F plt 273 10'3/ uL 150-40 0 Not Available [facility] (Lab) [address], [place], [address], 11/19/2024 13:10:12 11/18/20 24 11/18/2024 CBC W/DIF F MPV 10.7 fL 8.8-12 .1 Not Available [facility] (Lab) [address], [place], [address], 11/19/2024 13:10:12 11/18/20 24 11/18/2024 CBC W/DIF F NRBC's 0.0 % 0.0 Not Available [facility] (Lab) [address], [place], [address], 11/19/2024 13:10:12 11/18/20 24 11/18/2024 CBC W/DIF F absolute NRBCs 0.0 10'3/ uL no refere nce range establ ished Not Available [facility] (Lab) [address], [place], [address], 11/19/2024 13:10:12 11/18/20 24 11/18/2024 CBC W/DIF F neutrophils 73.7 % 34.0-7 3.0 high Not Available [facility] (Lab) [address], [place], [address], 11/19/2024 13:10:12 11/18/20 24 11/18/2024 CBC W/DIF F lymphocytes 20.1 % 15.0-5 0.0 Not Available [facility] (Lab) [address], [place], [address], 11/19/2024 13:10:12 11/18/20 24 11/18/2024 CBC W/DIF F monocytes 5.1 % 1.0-15 .0 Not Available [facility] (Lab) [address], [place], [address], 11/19/2024 13:10:12 11/18/20 24 11/18/2024 CBC W/DIF F eosinophils 0.3 % 0.0-8. 0 Not Available [facility] (Lab) [address], [place], [address], 11/19/2024 13:10:12 11/18/20 24 11/18/2024 CBC W/DIF F basophils 0.4 % 0.0-2. 0 Not Available [facility] (Lab) [address], [place], [address], 11/19/2024 13:10:12 11/18/20 24 11/18/2024 CBC W/DIF F immature granulocytes 0.4 % no define d refere nce range Not Available [facility] (Lab) [address], [place], [address], 11/19/2024 13:10:12 11/18/20 24 11/18/2024 CBC W/DIF F absolute neutrophils 7.5 10'3/ uL 1.5-8. 0 Not Available [facility] (Lab) [address], [place], [address], 11/19/2024 13:10:12 11/18/20 24 11/18/2024 CBC W/DIF F absolute lymphocytes 2.1 10'3/ uL 1.0-4. 0 Not Available [facility] (Lab) [address], [place], [address], 11/19/2024 13:10:12 11/18/20 24 11/18/2024 CBC W/DIF F absolute monocytes 0.5 10'3/ uL 0.2-1. 0 Not Available [facility] (Lab) [address], [place], [address], 11/19/2024 13:10:12 11/18/20 24 11/18/2024 CBC W/DIF F absolute eosinophils 0.0 10'3/ uL 0.0-0. 6 Not Available [facility] (Lab) [address], [place], [address], 11/19/2024 13:10:12 11/18/20 24 11/18/2024 CBC W/DIF F absolute basophils 0.0 10'3/ uL 0.0-0. 3 Not Available [facility] (Lab) [address], [place], [address], 11/19/2024 13:10:12 11/18/20 24 11/18/2024 CBC W/DIF F absolute immature granulocytes 0.0 10'3/ uL 0.00-0 .10 1/1/2 025 2:37 AM: P indic ates parti al resul ts on a panel have been relea sed. Addit ional resul ts will follo w. 025 2:37 AM: This resul t has been final verif ied. No addit ional or ya ed resul ts are expec kelsey. Not Available [facility] (Lab) [address], [place], [address], 11/19/2024 13:10:12 11/18/20 24 11/18/2024 HIV 1/2 ANTIG EN/AN TIBOD Y, REFLE X CONFI RMATI ON HIV antigen/anti body Nonrea ctive nonrea ctive HIV-1 antig en and HIV-1 /HIV- 2 antib odies were not detec kelsey. No labor atory evide nce of HIV infec tion. Not Available [facility] (Lab) [address], [place], [address], 11/19/2024 13:10:13 11/18/20 24 11/18/2024 HEMOG LOBIN A1C hemoglobin A1C 5.9 % 4.0-5. 6 high The Ameri can [employer] merna [employer] iatio n recom mends that a prima ry goal of thera py shoul d be a HBA1C of < 7% and that physi cians shoul d reeva luate the treat ment regim en in patie nts with HBA1C value s consi stent ly > 8%. <5.7% Flores l 5.7 - 6.4% Incre ased risk for diabe merna >=6.5 % Diagn ostic of diabe merna <7.0% Goal of thera py >8.0% Actio n sugge sted Not Available [facility] (Lab) [address], [place], [address], 11/19/2024 13:10:13 11/18/20 24 11/18/2024 HEPAT ITIS B SURFA CE ANTIG EN hepatitis B surface antigen Non-re active non-re active This assay was perfo rmed using [employer] ratio n reage nts and test kits. Value s obtai kapil with other assay metho ds or kits canno t be used inter ya eably . Not Available [facility] (Lab) [address], [place], [address], 11/19/2024 13:10:14 11/18/20 24 11/18/2024 HEPAT ITIS C ANTIB THIERRY SCREE N, REFLE X TO CONFI RMATI ON hepatitis C antibody Non-re active non-re active Antib odies to HCV Not Detec kelsey, does not exclu de the possi bilit y of expos ure to HCV. Not Available [facility] (Lab) [address], [place], [address], 11/19/2024 13:10:14 11/18/20 24 11/18/2024 TYPE/ RH/SC REEN ABO/Rh type B POS Not Available [facility] (Lab) [address], [place], [address], 11/19/2024 13:10:15 11/18/20 24 11/18/2024 TYPE/ RH/SC REEN antibody screen NEG Not Available [facility] (Lab) [address], [place], [address], 11/19/2024 13:10:15 11/18/20 24 11/18/2024 TYPE/ RH/SC REEN exp date 2024 23:59 Not Available [facility] (Lab) [address], [place], [address], 11/19/2024 13:10:15 11/18/20 24 11/18/2024 RUBEL LA IGG ANTIB THIERRY, QUANT rubella antibodies, IgG Reacti ve reacti ve Not Available [facility] (Lab) [address], [place], [address], 11/19/2024 13:10:15 11/18/20 24 11/18/2024 RUBEL LA IGG ANTIB THIERRY, QUANT rubella antibodies, IgG quant 46.8 IU/mL >=10 Non-r eacti ve (Non- Immun e) <10 IU/mL React mert (Immu ne) > or = 10 IU/mL Not Available [facility] (Lab) [address], [place], [address], 11/19/2024 13:10:15 11/18/20 24 11/18/2024 RPR SCREE N, REFLE X TITER /CONF IRMAT ION RPR screen Nonrea ctive nonrea ctive Not Available [facility] (Lab) [address], [place], [address], 11/19/2024 13:10:15 11/18/20 24 11/18/2024 CULTU RE: URINE result report SEE RESULT S BELOW Test: Cultu re: Urine Speci men Sourc e: Urine - Clean Catch Speci men Type: Urine Speci men Date: 11/18 1234 Resul t Date: 025 0158 Resul t Statu s: Final resul t Abnor mal: No Resul ting Lab: [facility] [address] [facility] [address] Tel: CULTU RE ----- ----- ----- --- Cultu re resul t (>=3 organ isms prese nt) indic ates possi ble conta minat ion. Repea t cultu re if sympt oms indic ate. Not Available [facility] (Lab) [address], [place], [address], 11/28/2024 14:33:08 11/18/20 24 11/18/2024 IMAGE GUIDE D PAP, REFLE X HPV IF ASCUS ONLY image guided Pap, reflex HPV ASCUS only SEE RESULT S BELOW CASE REPOR T: Cytol ogy Gynec ologi karyn Repor t Case: [id number] Autho abdi g Provi ramses: Svetlana Oreilly MD Colle cted: 11/18 1234 Order ing Locat ion: [place] [facility] Recei elisabeth: 11/20 1048 First Scree n: Rudy Tierney, CT Rescr een: Bal malik, Anne , [place] Speci men: Scree joyce Pap - Image d, Cervi x STATE MENT OF ADEQU ACY: Satis facto ry for evalu ation Trans forma tion zone compo nent prese nt ----- ----- ----- ----- ----- ----- ----- ----- ----- ----- ----- ----- ----- ----- ----- ----- ----- ---- FINAL DIAGN OSIS: Negat mert for Intra epith concepcional [place] or Ekta chavez (NIL) . 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 CLINI KARYN INFOR MATIO N: Menst rual Statu s: LMP (if appli cable ): Clini karyn Histo ry/Pr eviou s Pap: Type of Neopl era (if appli cable ): Signi fican t Clini karyn Findi ngs: Other Histo ry: Hormo bisi (if appli cable ): PAP EDUCA ARACELIS L NOTE: The Pap Test is a scree joyce test with an inher ent false negat mert rate. Liqui d-bas ed sampl ing may decre ase, but will not elimi constance, false negat mert resul ts. A negat mert resul t does not precl ude the prese nce and/o r devel opmen t of disea se, since the prese nce of abnor mal cells in the sampl e depen ds on the locat ion of the lesio n and sampl ing techn ique. Venita nued regul ar scree joyce is the best metho d of cance r preve ntion . If repor kelsey cytol ogic findi ng do not corre late with physi karyn and/o r histo rical findi ngs, furth er inves tigat ion is recom radha d, as clini percy warra nted. Not Available [facility] (Lab) [address], [place], [address], 11/28/2024 14:33:08 11/18/20 24 11/18/2024 TRICH OMONA S VAGIN ISHAN (RRNA ) trichomonas vaginalis ribosomal RNA (rrna) Negati ve negati ve Not Available [facility] (Lab) [address], [place], [address], 11/28/2024 14:33:09 11/18/20 24 11/18/2024 CT/GC (REGGIE) , THINP REP VIAL chlamydia trachomatis, PCR Negati ve negati ve Not Available [facility] (Lab) [address], [place], [address], 11/28/2024 14:33:09 11/18/20 24 11/18/2024 CT/GC (REGGIE) , THINP REP VIAL neisseria gonorrhoeae, PCR Negati ve negati ve Not Available [facility] (Lab) [address], [place], [address], 11/28/2024 14:33:09 11/18/20 24 11/18/2024 drug scree n, urine Amphetamines : negati ve Not Available [address], [place], [address], 11/18/2024 13:46:26 11/18/20 24 11/18/2024 drug scree n, urine Cannabinoids : positi ve Not Available [facility] [address], [place], [address], 11/18/2024 13:46:26 11/18/20 24 11/18/2024 drug scree n, urine Cocaine: negati ve Not Available [facility] [address], [place], [address], 11/18/2024 13:46:26 11/18/20 24 11/18/2024 drug scree n, urine Opiates: negati ve Not Available [facility] [address], [place], [address], 11/18/2024 13:46:26 11/18/20 24 11/18/2024 drug scree n, urine Phenocyclidi ne: negati ve Not Available [facility] [address], [place], [address], 11/18/2024 13:46:26 11/18/20 24 11/18/2024 drug scree n, urine Barbiturates : negati ve Not Available [facility] [address], [place], [address], 11/18/2024 13:46:26 11/18/20 24 11/18/2024 drug scree n, urine Benzodiazepi bisi: negati ve Not Available [facility] [address], [place], [address], 11/18/2024 13:46:26 11/18/20 24 11/18/2024 drug scree n, urine Ethanol: negati ve Not Available [facility] [address], [place], [address], 11/18/2024 13:46:26 11/18/20 24 11/18/2024 drug scree n, urine Hallucinogen s: negati ve Not Available [facility] [address], [place], [address], 11/18/2024 13:46:26 11/18/20 24 11/18/2024 drug scree n, urine Inhalants: negati ve Not Available [facility] [address], [place], [address], 11/18/2024 13:46:26 11/18/20 24 11/18/2024 drug scree n, urine Anabolic Steroids: negati ve Not Available [facility] [address], [place], [address], 11/18/2024 13:46:26 11/18/20 24 11/18/2024 US, obste tric, trans vagin al No observ ation record ed. [email or web address] [facility] [address], [place], [address], 11/18/2024 12:59:54 11/18/20 24 11/18/2024 US, obste tric, limit ed No observ ation record ed. [email or web address] [place] [address], [place], [address], 11/18/2024 12:59:25 11/18/20 24 11/18/2024 US, obste tric, follo w-up No observ ation record ed. [email or web address] [address], [place], [address], 11/20/2024 14:22:09 12/04/19 25 12/04/2024 US, obste tric, follo w-up No observ ation record ed. [email or web address] [address], [place], [address], 12/04/2024 21:45:46 12/10/19 25 12/10/2024 imagi ng/di agnos tic resul t No observ ation record ed. [facility] [address] [place], [address], 12/11/2024 18:36:55 12/10/19 25 12/10/2024 imagi ng/di agnos tic resul t No observ ation record ed. [email or web address] [facility] [address] [place], [address], 12/10/2024 22:00:04 Result Notes None recorded. Problems Name Problem SNOMED Code Status Onset Date Resolution Date Notes Provider Name and Address Organization Details Recorded Time 03926719 Active 2023 Jael Kemp [facility] 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 sched [facility] 12/10 09 Level II us and Consult Elena saab [facility] 5 18:08:29 Irritable bowel syndrome 72877745 Active Rickey Oreilly MD [address], [place], [address], [facility] 4 12:39:59 Hemoglobi n A1c measureme nt Active Elevated A1C 5.9 Early 1hr gtt @ 20wks Elena [facility] 5 14:16:54 Hemoglobi n A1c measureme nt Active Elevated A1C 5.9 Early 1hr gtt @ 20wks Elena [facility] 5 14:16:54 Migraine 31543522 Active Rickey Oreilly MD [address], [place], [address], [facility] 5 14:31:43 Problem Notes None recorded. Procedures Surgical History Date Name Laterality Status Provider Name and Address Organization Details Recorded Time 11/18/2024 Date of Last Pap Smear completed Jael Kemp [facility] 12/04/2024 14:08:10 11/19/2009 tonsilectom y/adenoids completed Jael Kemp [facility] 11/18/2024 12:22:39 Imaging Results Imaging Date Name Status LastModified by Organization Details LastModified Time 11/18/2024 US, obstetric, transvaginal completed [email or web address] [facility] [address], [place], [address], 11/18/2024 12:59:54 11/18/2024 US, obstetric, limited completed [email or web address] [facility] [address], [place], [address], 11/18/2024 12:59:25 11/18/2024 US, obstetric, follow-up completed [email or web address] [address], [place], [address], 11/20/2024 14:22:09 12/04/2024 US, obstetric, follow-up completed [email or web address] [address], [place], [address], 12/04/2024 21:45:46 12/10/2024 imaging/diagnost ic result active [email or web address] [facility] [address] [place] [address], [address], 12/11/2024 18:36:55 12/10/2024 imaging/diagnost ic result active [email or web address] [facility] [address] [place] [address], [address], 12/10/2024 22:00:04 Procedure Notes None recorded. Medical Equipment None Reported. Allergies No known drug allergies Medications Name Sig Start Date Stop Date Status Note LastModified by Organization Details LastModified Time ondansetron 8 mg disintegrat ing tablet DISSOLVE 1 TABLET ON THE TONGUE TWICE DAILY active Not Available Not Available No t Available benzonatate 100 mg capsule 11/18 completed Not Available Not Available Not Available calcium active Not Available Not Avail able Not Available Vitamin D active Not Available Not Lauren ilable Not Available active Not Available Not Avai lable Not Available Vitals Date Recorded Body height Body mass index (BMI) Body weight Systolic blood pressure Diastolic blood pressure Provider Name and Address Organization Details Last Updated DateTime 11/18/2024 181.61 cm 33.1 kg/m2 783321.7 6 g 106 mm[Hg] 71 mm[Hg] Jael Kemp [facility] 4 12:08:33 Date Recorded Body height Body mass index (BMI) Body weight Systolic blood pressure Diastolic blood pressure Provider Name and Address Organization Details Last Updated DateTime 12/04/2024 181.61 cm 33.7 kg/m2 401855.1 3065 g 124 mm[Hg] 77 mm[Hg] Jael Kemp [facility] 5 14:13:52 Social History Question Answer Notes LastModified by Organizat ion Details LastModified Time Tobacco Smoking Status [facility] 11/18/2024 12:15:57 What Is Your Level Of Alcohol Consumption? None Information not available 11/18/2024 Are You Blind Or Do You Have Difficulty Seeing? No Information n ot available 11/18/2024 What Is Your Level Of Caffeine Consumption? None Information not available 11/18/2024 In The 14 Days Before Symptom Onset, Have You Had Close Contact With A Laboratory-confirm ed COVID-19 While That Case Was Ill? No Information n ot available 11/18/2024 In The 14 Days Before Symptom Onset, Have You Had Close Contact With A Person Who Is Under Investigation For COVID-19 While That Person Was Ill? No Information not available 11/18/2024 Have You Been To An Area Known To Be High Risk For COVID-19? No Information not available 11/18/2024 Are You Currently Employed? No Information not available 11/18/2024 Are You Deaf Or Do You Have Serious Difficulty Hearing? No Information not available 11/18/2024 What Type Of Diet Are You Following? REGULAR Information n ot available 11/18/2024 What Is The Highest Grade Or Level Of School You Have Completed Or The Highest Degree You Have Received? [id number] Information not available 11/18/2024 Are There Any Guns Present In Your Home? No Information not available 11/18/2024 Do You Use Protection During Sex? Usually Information not available 11/18/2024 Do You Use Your Seat Belt Or Car Seat Routinely? Yes Information not available 11/18/2024 Are You Sexually Active? Yes Information not available 11/18/2024 Do You Have Smoke And Carbon Monoxide Detectors In Your Home? Yes Information not available 11/18/2024 Do You Feel Stressed (tense, Restless, Nervous, Or Anxious, Or Unable To Sleep At Night)? [id number] Information not available 11/18/2024 Do You Use Any Illicit Or Recreational Drugs? No Information not available 11/18/2024 Do You Use Sunscreen Routinely? No Information not available 11/18/2024 Sex: Unknown Functional Status Question Answer Note LastModified by Organizat ion Details LastModified Time Do you have difficulty walking or climbing stairs? No Information not available 11/18/2024 Are you able to walk? YESWOREST Information not available 11/18/2024 Are you able to care for yourself? Yes Information not available 11/18/2024 Do you have difficulty dressing or bathing? No Information not available 11/18/2024 Mental Status None recorded. Family History Relationship Description Onset Age of this Age Resolved Age Notes LastModified by Organization Details LastModified Time Brother Asthma Not available 1 12:14:52 Maternal Grandmother Malignant tumor of colon Not available 2023 12:15:18 Father Diabetes mellitus Not available 2023 12:15:38 Mother Diabetes mellitus Not available 2023 12:15:38 Medical History Condition Response Allergies (Food, seasonal, environmental ) N Other N Drug/Latex Allergies/Reactions N Blood Transfusion N Breast Cancer N Dermatologic Disorders N Lung Disease N Defects or Inherited Disease N Breast Problem N Gestational Diabetes N Hematologic disorders N Anesthesia Complications N History of STI N Deep Vein Thrombosis N Polycystic ovary syndrome N Anxiety Disorder N Autoimmune disease N Arthritis N Polyps N Infertility N Acid Reflux (GERD) N History of abnormal pap N Cancer N Varicosities N Stroke N Neurologic/Epilepsy N Endometriosis N High Cholesterol N Fibromyalgia N Headaches N Kidney Disease N Heart Problems N Thyroid Problems N Kidney or Bladder Problems N GI Problems N Eating Disorder N Anemia N Art (IVF or FET) N Psychiatric Illness N Ovarian Cancer N Diabetes N Pulmonary (TB, Asthma) N Hepatitis/Liver Disease N No Past Medical History N Eczema N Urinary Tract Infection N Abuse/Domestic Violence N Asthma N Trauma/Violence N Depression/ depression Y Heart Disease N Pre-Eclampsia N Hypertension N Osteoporosis N Thrombophilias N Gynecological History Statement/Question Response Abnormal Pap N Date of LMP On BCP's at Conception? N Was last menstrual period normal N STIs/STDs N HPV Vaccine Y Current Control Method Age at First Child 25 Are cycles usually normal N Sexually Active? Y Menses Monthly N Age of first menstrual cycle 12 Date of Last Pap Smear 11/18/2024 Sexual Problems? N LMP Unknown Obstetrics History GPAL:G 1 P 0 0 0 0 Past Encounters Encounter ID Performer Location Encounter Start Date Encounter Closed Date Diagnosis/Indication Diagnosis SNOMED-CT Code Diagnosis ICD10 Code Diagnosis Note [id number] Alana Saravia [facility] [address] [address] 11/18/2024 10:53:57 11/18/2024 11:58:58 screening [id number] Z36.87 N83.209 Z3A.14 [id number] Jael Kemp [facility] [address] [address] 11/18/2024 11:06:00 11/18/2024 13:00:41 Nausea and vomiting 11267751 R11.2 Routine an tenatal care 227194938 Z34.90 screening [id number] Z36.89 [id number] Rickey Oreilly MD [facility] [address] [address] 12/04/2024 13:55:34 12/05/2024 10:30:37 Routine care [id number] Z34.90 Health Concerns Section Related Observation LastModified by Organization Detai ls LastModified Time None Recorded Concern Status LastModified by Organization Details LastModified Time None Recorded Advance Directives Directive None Recorded Payers Encounter Date Sequence Insurance Name Policy Number Policy Astudillo Covered Member ID Asutdillo Member ID Guarantor Name 11/18/2024 1 [place] [facility] Yoko Fontenotuera [id number] Yoko Glenroy 11/18/2024 1 [place] [facility] Yoko Glenroy [id number] Yoko Glenroy 12/04/2024 1 [place] [facility] Yoko Glenroy [id number] Yoko Glenroy OBGyn Episode Ob Episode Information Episode Created Date Number of Fetuses Patient Bloodtype Patient rh Status Prepregnancy Weight lbs Domestic Partner Domestic Partner Phone Father Name Olive Picker Status 11/18/20 24 1 B Positive OPEN Fetus Data First Name Last Name Admitted to NICU Weight (g) Sex Living Outcome Pediatric Complications Fetus ID Race Codes Race Delivery Type [id number] Problems Problem Notes Problem Name Start Date End Date Resolution Snomed Code Not e 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 9 Early 1hr gtt @ 20wks Irritable bowel syndrome [id number] Migraine [id number] Keyon Calculation Initial Keyon Date Initial Exam Date Initial Exam Provider Initial Ultrasound Date Last Menstrual Period Date Ultra Sound Weeks Gestation 11/18/2024 11/18/2024 14 Eighteen To Twenty Week Keyon Update Ultra Sound Date Fundal Height At Umbil Quickening Date Ultra Sound Latest Weeks Gestation Final Keyon Confirmed By Final Keyon Confirmed Date Final Keyon Date Ultra Sound Latest Days Gestation 0 [email or web address] 11/18/2024 05/16/20 25 0 Pre-joe Flowsheet Flowsheet Date 11/18/2024 Wright Score Blood Edema Fundus Height Fundus Units Glucose Ketones Leukocytes Nitrite Labor Signs Protein Cervic Dilation Cervic Effacement Cervic Station Type Weight in lbs Pre/Post Dialysis Refused Weight 241.028266851714 BP Diastolic BP Location Tested BP Systolic BP Type 71 L arm 106 sitting Fetus Heart Rate Present Fetus Movement A No Comments this patient is a 24-year-ol d primiparous female at 12 weeks' gestation who presents for initial care. She has a history of term vaginal births. Her medical, surgical, obstetric history is unremarkable. She is vaccinated. She was given precautions recommendations for . We talked about vaccines in . Talked about care in detail. She is having genetic testing. She had a normal 12 week ultrasound. To begin routine care.Very large multi cystic ovary, IBD Flowsheet Date 12/04/2024 Wright Score Blood Edema Fundus Height Fundus Units Glucose Ketones Leukocytes Nitrite Labor Signs Protein Cervic Dilation Cervic Effacement Cervic Station Type Weight in lbs Pre/Post Dialysis Refused 245.120508837355 BP Diastolic BP Location Tested BP Systolic BP Type 77 L arm 124 sitting Fetus Heart Rate Present Fetus Movement A No Comments no complaints, no problems, routine care, no contractions, no vaginal bleeding, no loss of fluid, no cramping Menstrual History Last Menstrual Date Menses Monthly On Bcp Conception Prior Menses Frequency Hcg Plus Date Menarche Onset Age Delivery Information Delivery Date Delivery Type Labor Anesthesia Weeks Gestation Incision Type Labor Labor Length Hrs Delivered By Post Complications Tubal Sterilization Discharge Date Comments Discharge Information Feeding Method Contraceptive Method Maternal HG B and HCT Levels
--- OUTSIDE RECORDS SUMMARY | 2024-12-12 00:59 | XMS_ITS | Referral Summary ---
Author Organization [facility] Address [address] [place] [address] Care Team Providers Care Capability Lead Name Role Phone Unavailable Primary Care Provider Unavailabl e Source Comments [facility],non-owned Affiliates and Associated Physician Practices is amultiple site organization consisting of ambulatory clinics and hospital sitesin [place], [place], [place] and [place]. This disclosure is being madepursuant to the Care Everywhere program and may not contain all information available regarding this patient. Last updated 18.[facility] Encounters Date Type Department Care Team Description 12/10/2024 9:18 AM CHARGE [facility] - 12/10/2024 11:59 PM [facility] Hospital Encounter [facility] [address] [place] [id number] Vinicius Cavanaugh MD Discharge Disposition: Home or Self Care 12/10/2024 9:00 AM CHARGE [facility] - 12/10/2024 9:17 AM [facility] Hospital Encounter [facility] [address] [place] [id number] Vinicius Cavanaugh MD Discharge Disposition: Home or Self Care from Last 3 Months Allergies No known active allergies Medications * [...] (one) tablet by mouth once daily Active Social History Tobacco Use Types Packs/Day [...] Comments Blood Pressure 116/67 12/10/2024 10:02 AM [facility]GE [facility] Pulse 78 12/10/2024 10:02 AM [facility]GE HAND Temperature - - Respiratory Rate - - Oxygen Saturation 100% 12/10/2024 10:02 AM CHARGE HAND Inhaled Oxygen Concentration - - Weight 112.5 kg (248 lb) 12/10/2024 10:02 AM CHARGE [facility] Height 181.6 cm (5' 11.5 ) 12/10/2024 10:[address] Body Mass Index 34.11 12/10/2024 10:02 AM [facility]GE HAND Plan of Treatment Upcoming Encounters Date Type Department Care Team (Late st Contact Info) Description 12/15/2024 1:00 PM [facility]GE [facility] Office Visit [facility] - URGENT CARE NURSE PRACTITIONER [address] [place] [id number] Manuelito Escalona MD [address] [place] [address] 01/07/2025 2:30 PM CHARGE HAND Appointment [facility] [address] [place], [place] [id number] Procedures Procedure Name Priority Date/Time Associated Diagnosis Comments SONOGRAM - COMPLETE Routine 12/10/2024 9 :21 AM CHARGE HAND Ovarian cyst affecting , antepartum (HCC) Elevated hemoglobin A1c Encounter for anatomic survey ([facility]) Supervision of normal first , antepartum (HCC) from Last 3 Months Results * SONOGRAM - COMPLETE (12/10/2024 9:21 AM CHARGE HAND) Linked Results Indication ======== Maternal multicystic pelvic [...] lb 7 ??oz EFW by ? Hadlock ([id number]) appropriate Growth Overview Exam date ?[place] ?BPD [...] EDC from early U/S * Referred to [facility] for obstetrical U/S & request for [...] retro-uterine multiseptated cystic adnexal masses Overal size [id number] mm, cyst diameter measures up to 25 [...] but will refer SHERI & defer to APPIAN BPM DEVELOPER/ONC At present we will not order serum tumor markers Smoking (cigarettes, cannabis) cessation was strongly encouraged Start low-dose aspirin preeclampsia prophylaxis 162 mg/day Screen early for gestational diabetes mellitus (GDM); if negative, repeat @ 24-28 weeks Comprehensive anatomic survey with MFM & JET WIPER visit at 21 weeks Delivery planning (timing, mode, location): too early to determine at present Follow-up ======== comprehensive anatomy in 4 weeks Coding ====== Procedures ? 68467: US Preg Uterus >14 weeks ? 83782: US Preg Uterus Transvaginal i-nexus PACS Anatomical Region Laterality Modality Other 12/10/2024 9:21 AM CHARGE HAND R Pal Oreilly MD [facility] ORDERABLES from Last 3 Months
--- OUTSIDE RECORDS SUMMARY | 2024-12-12 00:59 | XMS_ITS | Clinical Summary ---
Author Organization [facility] Address [address] [place] [address] Care Team Providers Care Paving Inspector Name Role Phone Joaquin Santos MD Primary Care Provider [phone] Allergies No known active allergies Medications hydrOXYzine (VISTARIL) 25 mg capsule Take 25 mg by mouth 3 (three) times a day as needed for itching Active Surgical History Surgery Date Site/Laterality Comments TONSILLECTOMY Medical History Medical History Date Comments Anxiety Bipolar 1 disorder (HCC) Social History Tobacco Use Types Packs/Day Years [...] on file Legal Sex Female 6:51 PM SHANK ARCHER Gender Identity Not on file Sexual Orientation Not on file Obstetrics History Last Filed Vital Signs Vital Sign Reading [...] Not on file Insurance IDPA Care Teams Paving Inspector Relationship Specialty Start Date End Date Joaquin Santos MD PCP - General 12/18/19
== END 2024-12-10 13:10 | disposition home or self-care (01) ==
PROVIDERS: Visit Provider Obstetrics & Gynecology Maternal & Fetal Medicine
DX: O34.80 Maternal care for other abnormalities of pelvic organs, unspecified trimester (principal); N83.209 Unspecified ovarian cyst, unspecified side; Z3A.00 Weeks of gestation of pregnancy not specified
CPT/HCPCS: 36415; 82947

== ENCOUNTER 2025-05-12 09:42 | Inpatient (IN) | payer OTHER, SELFPAY ==
[2025-05-12] VITALS (46 sets, daily range): BP systolic 71–129; BP diastolic 27–93; PULSE 51–140; RESP 12–19; TEMP 36.1–37.2; O2SAT 87–100; BMI 36.8
[2025-05-12] MEDS: ACETAMINOPHEN 500 MG TABLET 1000 MG PO ×3 (10:01→23:22)
--- NOTE | 2025-05-12 10:06 | LDADM ---
This patient, Yoko Tim, was admitted to Labor/Delivery/Recovery 120 on 05/12/25 at 09:42. Plans for labor, pain management and were discussed with patient. Patient/family oriented to hospital policies and general routines including ID bracelet, bed and alarms, visiting hours, pain management, procedures, bathroom and other care routines, personal items, smoking policy, room service/diet and guest tray routines, infant security routines, and visiting hours. Patient/Family are encouraged to report perceived risks to care and to ask questions if they do not understand what they are told or what they should do. See OBIX for further documentation.
--- NOTE | 2025-05-12 10:29 | WPDANESEPPF ---
Anes - Initial Pre Proc Eval Procedure: Operation Date: 05/12/25 11:00 Proposed Procedures p Section - Rickey Oreilly MD Date/Time: 05/12/25 10:29 Surgeon: Rickey Oreilly MD Pre Op Diagnosis: C Section Patient Data Age: 25 Gender: F Height: 1.8 m Weight: 120 kg Last Vital Signs Temp 36.5 C 05/12/25 10:27 Pulse 86 05/12/25 10:15 BP 126/93 H 05/12/25 10:15 Pulse Ox 100 05/12/25 10:28 O2 Del Method Room Air 05/12/25 10:05 Allergies Allergy/AdvReac Type Severity Reaction Status Date / Time No Known Allergies Allergy Verified 05/16/25 18:30 Home Medications ?Medication ?Instructions ?Recorded ?Confirmed ?Type No Home Medications 05/11/20 05/11/20 History hydrocodone 5 mg-acetaminophen 325 1 - 2 tablet PO Q6H PRN pain #25 05/14/25 Rx mg tablet tabs Patient hx anesthesia problems: none Family hx anesthesia problems: none Results Review: All pre-operative results and documents have been reviewed as part of the pre-operative evaluation. FORMERLY [facility], [facility] Social History Social History Smoking status: Former smoker Additional smoking assessment comments: Smoking marijuana Do You Feel Safe in your Home?: No Lack of Transportation: No Lack of Food: Never True Current Housing: I Have Housing Concerned About Future Housing: No Difficulty Paying Gas/Electric Bills: No Difficulty Paying for Meds: No Currently Unemployed: YES Education: High School Diploma/GED Difficulty w/ Childcare or Family Care: No Gender identity (if verbalized by the patient): Female Spiritual care concerns: No Anes - Eval Final PreProcedure Day of Procedure 05/12/25 10:29 Patient weight: obese Heart: regular rate and rhythm Lungs: clear to auscultation and normal air movement Airway: Mallampati scale class II Neurological: alert and oriented Last oral intake: >/= 8 hours ASA classification: III Emergent: no Anesthetic plan: proceed Anesthesia type and monitoring: regional spinal and standard monitoring Results Review: All pre-operative results and documents have been reviewed as part of the pre-operative evaluation. Informed Consent: The patient's anesthetic plan and its attendant risks and benefits were discussed with the patient/family/POA. Questions were solicited and answers provided to the satisfaction of the patient/family/POA.
[2025-05-12] MEDS: FAMOTIDINE 20 MG/2 ML VIAL IV PUSH (10:51)
[2025-05-12] MEDS: ONDANSETRON INJ 4 MG/2 ML VIAL IV PUSH (10:51)
--- NOTE | 2025-05-12 10:53 | P.HP_ITS ---
H&P: HPI History of Present Illness Date/Time: 05/12/25 10:53 Chief Complaint: Term Narrative: This patient is a 25-year-old primiparous female at term who presents for elective delivery. She understands risks, benefits, and alternatives. She has completed the informed consent process and is ready to proceed. The patient understands the details of the procedure. The procedure has been e xplained in detail. She understands the risks. She understands that injuries may occur that result in hospitalization, more surgery, and severe illness. She understands risk of hemorrhage and infection. She denies any chest pain or shortness of breath. She denies any nausea, vomiting, fever, chills. Review of Systems Review of Systems: All systems reviewed & are unremarkable except as noted in HPI and below Constitutional: Constitutional: Denies chills, Denies fatigue, Denies fever(s) and Denies weakness Eyes: Eyes: Denies blurry vision, Denies change in vision, Denies loss of peripheral vision, Denies loss of vision, Denies other visual disturbances and Denies eye pain ENT: Denies vertigo, Denies dizziness, Denies hearing loss, Denies mouth pain, Denies nasal obstruction, Denies neck mass and Denies neck pain Cardiovascular: Cardiovascular: Denies chest pain, Denies diaphoresis, Denies syncope, Denies leg edema and Denies dyspnea Respiratory: Respiratory: Denies chest congestion, Denies cough, Denies hemoptysis, Denies dyspnea and Denies wheezing Gastrointestinal: Gastrointestinal: Denies abdominal pain, Denies constipation, Denies diarrhea, Denies nausea and Denies vomiting Genitourinary: Genitourinary: Denies hematuria, Denies change in libido, Denies nocturia, Denies genital lesions, Denies flank pain and Denies urinary urgency Musculoskeletal: Musculoskeletal: Denies abnormal gait, Denies back pain, Denies myalgias, Denies arthralgias, Denies joint swelling, Denies muscle weakn ess and Denies neck pain Integumentary/Breasts: Skin/Breast: Denies swelling, Denies breast pain, Denies breast mass, Denies dry skin, Denies nipple discharge, Denies unusual bruising and Denies jaundice Neurologic: Denies Neuro-related abnormal movements, Denies Abnormal speech present, Denies abnormal gait, Denies behavioral changes, Denies confusion, Denies vertigo, Denies dizziness, Denies syncope, Denies loss of vision, Denies memory loss, Denies convulsions and Denies weakness Psychiatric: Psychiatric: Denies abnormal sleep pattern, Denies behavioral changes, Denies change in libido, Denies confusion, Denies depression, Denies anhedonia and Denies memory loss Endocrine: Endocrine: Reports no additional endocrine complaints, Denies change in libido and Denies fatigue Hematologic/Lymphatic: Hematologic/Lymphatic: Reports no additional hematologic/lymphatic complaints Allergic/Immunologic: Allergic/Immunologic: Reports no additional allergic/immunologic complaints and Denies wheezing PMFSH Social History Social History Smoking status: Former smoker Additional smoking assessment comments: Smoking marijuana Do You Feel Safe in your Home?: No Lack of Transportation: No Lack of Food: Never True Current Housing: I Have Housing Concerned About Future Housing: No Difficulty Paying Gas/Electric Bills: No Difficulty Paying for Meds: No Currently Unemployed: YES Education: High School Diploma/GED Difficulty w/ Childcare or Family Care: No Gender identity (if verbalized by the patient): Female Spiritual care concerns: No Meds Home Medications and Allergies Home Medications ?Medication ?Instructions ?Recorded ?Confirmed ?Type No Home Medications 05/11/20 05/11/20 History Allergies Allergy/AdvReac Type Severity Reaction Status Date / Time No Known Allergies Allergy Verified 05/11/20 11:55 Vital Signs Vital Signs - 24 hr 05/12/25 10:01 05/12/25 10:01 05/12/25 10:03 Temperature 96.9 F L Pulse Rate 108 H Blood Pressure 128/86 Pulse Oximetry 98 Oxygen Delivery 05/12/25 10:05 05/12/25 10:06 05/12/25 10:11 Temperature Pulse Rate Blood Pressure Pulse Oximetry 99 98 Oxygen Delivery Room Air 05/12/25 10:15 05/12/25 10:16 05/12/25 10:21 Temperature Pulse Rate 86 Blood Pressure 126/93 H Pulse Oximetry 98 98 Oxygen Delivery 05/12/25 10:24 05/12/25 10:27 05/12/25 10:28 Temperature 97.7 F Pulse Rate Blood Pressure Pulse Oximetry 99 100 Oxygen Delivery 05/12/25 10:30 05/12/25 10:35 05/12/25 10:40 Temperature Pulse Rate 87 Blood Pressure 124/83 Pulse Oximetry 99 100 99 Oxygen Delivery 05/12/25 10:45 05/12/25 10:48 Temperature Pulse Rate 83 Blood Pressure 124/78 Pulse Oximetry 99 98 Oxygen Delivery Exam Const: General: cooperative, healthy appearing, comfortable and no acute distress Orientation/consciousness: oriented to person, oriented to place and oriented to time HENMT: Head: normal to inspection Ears: external ears normal Face/Nose/Sinus: Normal external nose present and normal facial exam Face and sinus: normal facial exam Eyes: General: appearance normal, both eyes and all related structures Neck: Neck: normal visual inspection, trachea midline and supple Resp: Auscultation: clear to auscultation bilaterally, no crackles, no rales, no rhonchi and no wheezes Cardio: Rate: regular rate Rhythm: regular rhythm Heart sounds: no click, no murmurs and no rubs GI: GI Palp: No abdominal tenderness, No Soft to palpation, No Tenderness to palpation present (GI) and No Palpable mass present Auscultation: normal bowel sounds Skin: General skin exam: normal color and no rashes or lesions noted Neuro: General: oriented to person, oriented to place and oriented to time Extrem: General: normal to inspection, no joint enlargement, no clubbing, cyanosis or edema, no pedal edema and no calf tenderness Psych: Appearance: grossly normal Mental Status: mental status grossly normal Speech and movement: Normal speech and movement present Assessment and Plan Assessment and plan (1) Term : Code(s): Z34.90 - Encounter for supervision of normal , unspecified, unspecified trimester Status: Acute (2) Delivery by elective section: Code(s): O82 - Encounter for delivery without indication Status: Acute Plan This patient is a 25-year-old primiparous female at term who presents for elective delivery. She understands risks, benefits, and alternatives. She has completed the informed consent process and is ready to proceed.
--- NOTE | 2025-05-12 10:59 | WPDHPUPDATE1 ---
History and Physical Update Update Date/Time: 05/12/25 10:59 History and Physical has been reviewed, including an updated exam of the patient. There are NO changes in the patient's condition. Risks, benefits, and alternatives have been discussed and questions answered. Patient agrees to proceed with procedure.
[2025-05-12 11:46] LABS: Basophils Absolute Auto 0.1 K/mm3 (0.0-0.1); Basophils Percent Auto 0.4 % (0.2-1.2); Eosinophils Absolute Auto 0.1 K/mm3 (0-0.3); Eosinophils Percent Auto 0.6 % (0-4.4); Hematocrit 40.2 % (37.0-47.0); Hemoglobin 12.9 g/dL (12.0-15.0); Immature Granulocyte Absolute 0.07 K/mm3 (0.00-0.031); Immature Granulocyte Percent A 0.6 % (0-0.5); Lymphocytes Absolute Auto 2.83 K/mm3 (0.9-3.2); Lymphocytes Percent Auto 24.8 % (18.3-44.2); Mean Corpuscular HGB Conc 32.1 g/dl (32-36); Mean Corpuscular Hemoglobin 26.2 pg (26-34); Mean Corpuscular Volume 81.7 fl (80-100); Mean Platelet Volume 11.6 fl (7.4-10.4); Monocytes Absolute Auto 0.6 K/mm3 (0.1-0.6); Monocytes Percent Auto 5.4 % (2.6-8.5); Neutrophils Absolute Auto 7.8 K/mm3 (1.3-6.7); Neutrophils Percent Auto 68.2 % (45.5-73.1); Platelet Count Result 268 k/mm3 (150-375); Red Blood Count 4.92 M/mm3 (4.2-5.4); Red Cell Distribution Width 14.3 % (11.5-14.5); White Blood Count 11.4 K/mm3 (4.5-10.0)
--- NOTE | 2025-05-12 12:08 | W.PM.OBCSD ---
OB - Delivery Note Procedure Delivery date: 05/12/25 Pre-op diagnosis: Other (Elective primary , ovarian mass) Post-op Diagnosis: Same Procedure Performed: Primary Surgeon: Rickey Oreilly MD Anesthesia type: Spinal Description of Procedure/Findings: The patient was taken the operating room.? She was prepped and draped in dorsal supine position with a leftward tilt.? This was done after spinal anesthetic was applied.? A low-transverse skin incision was made and carried down till of the fascia with the knife.? The fascial incision was made with the knife.? The fascial incision was extended laterally with Richmond scissors.? The fascia was tented upward superiorly and inferiorly the rectus muscles were dissected off bluntly.? The rectus muscles were the midline.? The preperitoneal fat and peritoneum were dissected open bluntly at the superior aspect of the rectus muscles.? The peritoneal incision was extended superior and inferior with good position of bladder.? The uterine incision was made with a scalpel down to the level of the amniotic cavity.? The amniotic cavity was entered bluntly.? The was delivered.? The cord was clamped and cut and the infant was handed off to waiting pediatric staff.? Cord bloods were obtained.? The placenta was removed manually.? The uterus was exteriorized.? The uterus was cleared of all clots, debris and membranes.? The uterus was closed in 0 Vicryl running lock fashion.? An imbricating over a was placed along the incision line as well.? The uterus was returned to the abdomen.? The gutters were cleared of all clots and debris.? The fascia was closed with 0 Vicryl running fashion.? The subcutaneous tissue was irrigated pinpoint bleeders were cauterized.? The skin was closed with subcuticular absorbable nathalie.? The skin incision line was covered with glue.? The patient tolerated the procedure well.? She has taken recovery room in stable condition.? Sponge lap and needle counts were correct x2.? Complications: No immediate complications Condition: Stable Disposition: PACU
[2025-05-12 12:59] LABS: Syphilis IgG/IgM Antibody Non-Reactive (Nonreactive)
[2025-05-12] MEDS: OXYTOCIN 30 UNITS/NS 500 ML 30 UNITS/500 ML BAG 125 UNITS IV CONT (13:40)
[2025-05-12] MEDS: KETOROLAC 15 MG/ML VIAL (*BKC) IV PUSH ×3 (13:40→23:22)
--- NOTE | 2025-05-12 14:30 | OBPPTRN ---
Patient transferred to post room # 281 via stretcher. Support person present. Oriented to unit, room, information board, rooming in, admission packet and security measures. Patient verbalizes understanding.
--- NOTE | 2025-05-12 16:00 | PC.NURSE ---
Attempted to assist patient to latch baby for a feeding. Mom is in a semi reclined position with baby across her belly. Mom's nipples are flat but do glen with stimulation. Baby gave some effort to latch but was very fussy and began to cry vigorously. Baby was placed on mom's chest for skin to skin to calm her. When she was more regulated, we moved her to the left breast, also in a semi reclined position. Baby made a few attempts but never obtained a latch. When we tried to reposition, baby started to fuss again. Mom is encouraged to allow baby access to the breast and to try to latch again when baby is more receptive. RN updated.
[2025-05-12] MEDS: DEXTROSE 5%/0.45% SOD CHL 1,000 ML 125 ML IV CONT (17:40)
[2025-05-12] MEDS: DOCUSATE SODIUM 100 MG CAPSULE PO (17:41)
[2025-05-12] MEDS: SIMETHICONE 80 MG TAB.CHEW PO (17:41)
[2025-05-13] MEDS: DEXTROSE 5%/0.45% SOD CHL 1,000 ML 125 ML IV CONT (02:07)
[2025-05-13 04:51] LABS: Basophils Percent Auto 0.5 % (0.2-1.2); Eosinophils Absolute Auto 0.1 K/mm3 (0-0.3); Eosinophils Percent Auto 0.7 % (0-4.4); Hematocrit 31.2 % (37.0-47.0); Hemoglobin 9.9 g/dL (12.0-15.0); Immature Granulocyte Absolute 0.03 K/mm3 (0.00-0.031); Immature Granulocyte Percent A 0.4 % (0-0.5); Lymphocytes Absolute Auto 2.22 K/mm3 (0.9-3.2); Lymphocytes Percent Auto 25.9 % (18.3-44.2); Mean Corpuscular HGB Conc 31.7 g/dl (32-36); Mean Corpuscular Hemoglobin 26.6 pg (26-34); Mean Corpuscular Volume 83.9 fl (80-100); Mean Platelet Volume 11.1 fl (7.4-10.4); Monocytes Absolute Auto 0.6 K/mm3 (0.1-0.6); Neutrophils Absolute Auto 5.6 K/mm3 (1.3-6.7); Neutrophils Percent Auto 65.5 % (45.5-73.1); Platelet Count Result 191 k/mm3 (150-375); Red Blood Count 3.72 M/mm3 (4.2-5.4); Red Cell Distribution Width 14.4 % (11.5-14.5); White Blood Count 8.6 K/mm3 (4.5-10.0)
[2025-05-13] MEDS: ACETAMINOPHEN 500 MG TABLET 1000 MG PO ×4 (05:43→23:40)
[2025-05-13] MEDS: KETOROLAC 15 MG/ML VIAL (*BKC) IV PUSH (05:43)
[2025-05-13] MEDS: DOCUSATE SODIUM 100 MG CAPSULE PO ×2 (07:47→16:53)
[2025-05-13] MEDS: SIMETHICONE 80 MG TAB.CHEW PO ×3 (07:47→16:53)
[2025-05-13] MEDS: MULTIVIT/MIN/PREN/FOL AC/IRON TABLET 1 TAB PO (07:47)
[2025-05-13] MEDS: POLYSACCHARIDE IRON COMPLEX 150 MG CAPSULE PO ×2 (07:48→16:53)
[2025-05-13] MEDS: LIDOCAINE 5% PATCH 1 PATCH TRANSDERM (07:48)
[2025-05-13 08:10] VITALS: BP 107/50; PULSE 64; RESP 16; TEMP 37.2; O2SAT 98
--- NOTE | 2025-05-13 08:13 | PM.OBPNVD ---
OB - PN: Subj Subjective Date/time seen: 05/13/25 08:13 Interval history: post op day 1 passing gas incisional pain OB - PN: Obj Data Labs 05/13/25 04:00 Labs: Laboratory Results - last 24 hr 05/12/25 05/12/25 05/13/25 10:15 10:16 04:00 WBC 11.4 H 8.6 RBC 4.92 3.72 L Hgb 12.9 9.9 L D Hct 40.2 31.2 L MCV 81.7 83.9 MCH 26.2 26.6 MCHC 32.1 31.7 L RDW 14.3 14.4 Plt Count 268 191 MPV 11.6 H 11.1 H Immature Gran % (Auto) 0.6 H 0.4 Neut % (Auto) 68.2 65.5 Lymph % (Auto) 24.8 25.9 [place] % (Auto) 5.4 7.0 Eos % (Auto) 0.6 0.7 Baso % (Auto) 0.4 0.5 Lymph # (Auto) 2.83 2.22 [place] # (Auto) 0.6 0.6 Eos # (Auto) 0.1 0.1 Baso # (Auto) 0.1 0.0 Abs Immat Gran (auto) 0.07 H 0.03 Absolute Neuts (auto) 7.8 H 5.6 Absolute Nucleated RBC 0.000 0.000 Nucleated RBC % 0.0 0.0 Syphilis IgG/IgM Ab Non-reactive Blood Type B Positive Antibody Screen Negative OB - PN A/P Plan day: 1 Plan: routine care Time Spent With Patient Time: Total time spent is greater than 50% in coordination of care (as documented) at patient's floor/unit and/or counseling patient: Review of Systems Review of Systems: All systems reviewed & are unremarkable except as noted in HPI and below Exam Const: General: cooperative, healthy appearing and comfortable Chest: Chest palpation & inspection: normal inspection of the chest Resp: Effort & Inspection: normal respiratory effort Cardio: Rate: regular rate GI: Other: Incision CDI
--- NOTE | 2025-05-13 09:25 | PC.NURSE ---
Introductions were made, then consulted with patient to assess needs related to . Mother led the conversation with her?plans to feed?her infant and the?experience so far. Mother states that she does not currently have any questions or concerns. Mother states that is nursing well and denies pain while . Communication board updated with contact information in case questions arise. Mother encouraged to call RN to assess latch today.
[2025-05-13] MEDS: IBUPROFEN 600 MG TABLET PO ×3 (11:30→23:40)
[2025-05-13 16:52] VITALS: BP 119/68; PULSE 66; RESP 18; TEMP 36.3; O2SAT 99
[2025-05-13 20:25] VITALS: BP 106/64; PULSE 71; RESP 18; TEMP 36.5; O2SAT 100
[2025-05-13] MEDS: TETANUS,DIPHTHERIA,AC PERTUSSIS ADULT (0.5 ML) BOOSTRIX IM (23:41)
[2025-05-14] MEDS: ACETAMINOPHEN 500 MG TABLET 1000 MG PO (05:31)
[2025-05-14] MEDS: IBUPROFEN 600 MG TABLET PO (05:31)
[2025-05-14] MEDS: SIMETHICONE 80 MG TAB.CHEW PO (07:03)
[2025-05-14] MEDS: MULTIVIT/MIN/PREN/FOL AC/IRON TABLET 1 TAB PO (07:04)
[2025-05-14] MEDS: LIDOCAINE 5% PATCH 1 PATCH TRANSDERM (07:04)
[2025-05-14] MEDS: DOCUSATE SODIUM 100 MG CAPSULE PO (07:04)
[2025-05-14] MEDS: POLYSACCHARIDE IRON COMPLEX 150 MG CAPSULE PO (07:04)
[2025-05-14] MEDS: oxyCODONE HCL (*CRX) 5 MG TAB IR PO (07:08)
[2025-05-14 07:25] VITALS: BP 129/77; PULSE 64; RESP 16; TEMP 37.2; O2SAT 100
--- NOTE | 2025-05-14 07:55 | PC.NURSE ---
Consulted with mother concerning needs and she shared her ability to independently latch infant optimally without pain. Mother is feeding appropriately for growth of infant and understands stimulating to eat if needed. Infant has had appropriate feedings in the last 24 hours. Reviewed standard discharge information with patient including monitoring for required output, transition of stools, feeding 8-12 times every 24 hours, milk production, and follow up at [place] and with sex crimes detective in the first week of life. Parents are encouraged to take the feeding log and continue to track feedings and output for the first week . Offered outpatient resources with [place] referral (declined) and Services at [place]. Patient has the Mom/Baby Guide for further education and reference for common concerns, phone numbers, and guidance on when to call the doctor. A feeding plan was added to the infant?s discharge plan. Patient states that she has no further questions or concerns regarding .
--- NOTE | 2025-05-14 08:13 | P.PNOB_ITS ---
OB - PN: Subj Subjective Date/time seen: 05/14/25 08:13 Interval history: post op day 1 passing gas incisional pain Patient comments: no complaints, pain well controlled, incisional pain, tolerating diet and flatus present OB - PN: Obj Data Labs 05/13/25 04:00 OB - PN A/P Plan day: 3 Plan: routine care, discharge home and other Comments: Incision check in one week. Given precautions Time Spent With Patient Time: Total time spent is greater than 50% in coordination of care (as documented) at patient's floor/unit and/or counseling patient: Exam 2 Const: General: comfortable, no acute distress and alert Resp: Effort & Inspection: normal respiratory effort Auscultation: no crackles, no rales and no rhonchi Cardio: Rate: regular rate Heart sounds: no click, no murmurs and no rubs GI: Inspection: non-distended GI Palp: No Tenderness to palpation present (GI) Auscultation: normal bowel sounds Other: Incision - CDI Extrem: General: normal to inspection, no pedal edema and no calf tenderness
--- NOTE | 2025-05-14 08:14 | PM.OBDSVD ---
DS: Admitting Diagnosis Discharge Date 05/14/2025 Admitting Diagnosis Term DS: Discharge Diagnosis Discharge Diagnosis (1) Delivery by elective section: Code(s): O82 - Encounter for delivery without indication Status: Acute OB - DS: Summary OB Procedures : None OB Procedures Intrapartum: OB Procedures: : None Peripartum Data Procedures: Procedures Operation Date: 05/12/25 11:00 Actual Procedure Side Surgeon p Section Rickey Oreilly MD Time Spent with Patient Time attestation: Total time spent providing and/or coordinating discharge services: Discharge Plan Discharge Discharging Clinician: Rickey Oreilly Patient Disposition: Home Activity: pelvic rest Diet: regular Patient Instructions: Antibiotic Form Patient Language: [place] Stand Alone Forms: General Discharge Information Follow-up/Referrals: Rickey Oreilly MD [Physician] - Discharge Medications: New hydrocodone-acetaminophen 5-325 mg tablet 1 - 2 tablet PO Q6H PRN (Reason: pain) Qty: 25 0RF No Action No Home Medications Date of admission: 05/12/25 09:42 Primary Care Provider: 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
[2025-05-15 10:33] VITALS: BP 124/71; PULSE 74; RESP 18; TEMP 36.9; O2SAT 100
== END 2025-05-14 12:13 | disposition home or self-care (01) | DRG 540 ==
LOC: ANHLDR 09:50 → ANHOB2 14:54
PROVIDERS: Admitting Provider Obstetrics & Gynecology; Visit Provider Obstetrics & Gynecology
PROC: 10D00Z1 Extraction of Products of Conception, Low, Open Approach (ICD-10-PCS; CPT 59514; principal; 2025-05-12 11:00)
DX: O34.83 Maternal care for other abnormalities of pelvic organs, third trimester (principal); N83.209 Unspecified ovarian cyst, unspecified side; Z3A.39 39 weeks gestation of pregnancy; Z37.0 Single live birth
CPT/HCPCS: 36415; 85025; 86593; 86850; 86900; 86901; 90715; A9270; J1885; J2274; J2371; J2405; J2590

== ENCOUNTER 2025-05-16 18:13 | Emergency (ER) | payer OTHER, SELFPAY ==
[2025-05-16 18:26] VITALS: BP 141/99; PULSE 88; RESP 18; TEMP 36.8; O2SAT 100
[2025-05-16 20:15] VITALS: BP 138/94; PULSE 89; RESP 16; O2SAT 100
--- NOTE | 2025-05-16 20:17 | ECG_ITS ---
Test Date: 2025-05-16 20:21:54 Measurements Intervals [place] Rate: 85 P: 36 MN: 151 QRS: 31 QRSD: 84 T: 7 QT: 351 QTc: 419 Interpretive Statements SINUS RHYTHM MINIMAL Q WAVES- INFERIOR LEADS BASELINE ARTIFACT- I, II, III, AVR, AVL, AVF, V1 BORDERLINE ECG No previous ECG available for comparison Electronically Signed On 05-17-2025 08:32:24 CDT by Dejuan Betancourt D.O.
== END 2025-05-16 22:51 | disposition left against medical advice (07) ==
PROVIDERS: Emergency Provider Emergency Medicine
DX: R22.41 Localized swelling, mass and lump, right lower limb (principal)
CPT/HCPCS: 93005; 99199

== ENCOUNTER 2025-07-08 02:21 | Day surgery (SDC) | payer OTHER, SELFPAY ==
[2025-06-26 15:34] VITALS: BMI 36.1
--- NOTE | 2025-06-26 15:35 | PC.NURSE ---
Report to the Outpatient Waiting Room, entrance under the green pavilion located off [facility], at time _0630_ on date _[id number]_. Planned Procedure Time: _0830_.? Time changes happen often and if your time is changed the preop area will call you the afternoon before. - You and your visitor will be asked to self-screen and do not enter if you have any COVID symptoms. Please call surgeon if you need to reschedule. - A mask is optional within the hospital at this time. Patients may have clear liquids (water, carbonated beverages, clear teas, apple juice) until 3 hours prior to surgery with a maximum of 20 ounces. - No food from midnight until time of surgery and no smoking, or chewing tobacco (or any form of nicotine). No chewing gum, candy or mints. Take only the following medications with a SIP of water on the morning of surgery: ___None____ DO NOT STOP ANY OF YOUR OTHER PRESCRIPTION MEDICATIONS PRIOR TO SURGERY EXCEPT THE FOLLOWING Hold all vitamins and supplements for 3 days per anesthesiologist. Medications to discontinue per physician Date to take last dose Please no make-up, nail maori, hairspray, perfume, deodorant, or body powder the day of surgery.? No jewelry (including any body piercings) or valuables the day of surgery, leave them at home.? Please take a shower or bath the night before, or the morning of, surgery with an antibacterial soap.? Wear comfortable, loose fitting clothing.? - Jewelry must be removed prior to entering the operating room.? Rings and piercings that are not removed may be cut off. - The hospital will not accept responsibility for valuables.? - Please leave all valuables, including medications, at home the day of surgery. If you are going home after surgery, a licensed national van truck driver must drive you home.? - NO public transportation without another adult if you receive anesthesia. - We recommend that an adult stay with you for 24 hours following discharge. - We also recommend that you do not drive, make important decision, drink alcoholic beverages, or take any drugs that were not prescribed by your health care provider for at least 24 hours after your discharge time. Follow any additional instructions given to you from your surgeon. Telephone instructions given to _Stepjerry___and asked if any additional questions and then verbalized understanding. Patient advised to call surgeon office or pre surgery nurse liaison [phone] if any additional questions.
[2025-07-08] VITALS (9 sets, daily range): BP systolic 99–129; BP diastolic 45–87; PULSE 67–118; RESP 15–16; TEMP 36.3–37; O2SAT 94–100
[2025-07-08] MEDS: ACETAMINOPHEN 500 MG TABLET 1000 MG PO (07:10)
[2025-07-08] MEDS: LACTATED RINGERS 1,000 ML 30 ML IV CONT ×2 (07:14→10:31)
[2025-07-08] MEDS: KETOROLAC 15 MG/ML VIAL (*BKC) IV PUSH (07:16)
[2025-07-08 07:25] LABS: BEDSIDEPREGUCG Negative (Negative)
--- NOTE | 2025-07-08 07:49 | WPDANESEPPF ---
Anes - Initial Pre Proc Eval Procedure: Operation Date: 07/08/25 08:45 Proposed Procedures p Right Laparoscopic Oophorectomy - Rickey Oreilly MD Date/Time: 07/08/25 07:49 Surgeon: Rickey Oreilly MD Pre Op Diagnosis: right ovarian mass Patient Data Age: 25 Gender: F Height: 1.8 m Weight: 118.2 kg Last Vital Signs Temp 37.0 C 07/08/25 06:50 Pulse 74 07/08/25 06:50 Resp 16 07/08/25 06:50 BP 129/87 07/08/25 06:50 Pulse Ox 100 07/08/25 06:50 O2 Del Method Room Air 07/08/25 06:50 Allergies Allergy/AdvReac Type Severity Reaction Status Date / Time No Known Allergies Allergy Verified 07/08/25 07:17 Home Medications ?Medication ?Instructions ?Recorded ?Confirmed ?Type No Home Medications 05/11/20 06/26/25 History Laboratory Tests 07/08/25 06:58 POC Urine HCG, Qual Negative (Negative) Patient hx anesthesia problems: none Family hx anesthesia problems: none Results Review: All pre-operative results and documents have been reviewed as part of the pre-operative evaluation. [facility] Social History Social History Years smoked: 2 Smoking status: Former smoker Smoking end date: 06/26/24 Additional smoking assessment comments: Smoking marijuana Do You Feel Safe in your Home?: No Lack of Transportation: No Lack of Food: Never True Current Housing: I Have Housing Concerned About Future Housing: No Difficulty Paying Gas/Electric Bills: No Difficulty Paying for Meds: No Currently Unemployed: YES Education: High School Diploma/GED Difficulty w/ Childcare or Family Care: No Living arrangements: with family Gender identity (if verbalized by the patient): Female Spiritual care concerns: No Anes - Eval Final PreProcedure Day of Procedure 07/08/25 07:49 Patient weight: obese Heart: regular rate and rhythm Lungs: clear to auscultation Airway: Mallampati scale class III Neurological: alert and oriented Last oral intake: >/= 8 hours ASA classification: II Emergent: no Anesthetic plan: proceed Anesthesia type and monitoring: general ETT and standard monitoring Results Review: All pre-operative results and documents have been reviewed as part of the pre-operative evaluation. Informed Consent: The patient's anesthetic plan and its attendant risks and benefits were discussed with the patient/family/POA. Questions were solicited and answers provided to the satisfaction of the patient/family/POA.
--- NOTE | 2025-07-08 08:31 | WPDHPUPDATE1 ---
History and Physical Update Update Date/Time: 07/08/25 08:31 History and Physical has been reviewed, including an updated exam of the patient. There are NO changes in the patient's condition. Risks, benefits, and alternatives have been discussed and questions answered. Patient agrees to proceed with procedure.
--- NOTE | 2025-07-08 09:16 | S_PTH ---
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
[2025-07-08] MEDS: LIDOCAINE 1% LOCAL INJ 10 ML VIAL INFILTRATE (10:13)
--- NOTE | 2025-07-08 10:27 | W.PM.PROC2 ---
Procedure Note - Detailed Date of Procedure 07/08/25 Pre-op Diagnosis right ovarian mass Post-op Diagnosis Other (Left ovarian mass) Procedure Performed Laparoscopic left salpingo-oophorectomy and resection of pelvic mass Surgeon Rickey Oreilly MD Anesthesia General Indications Pelvic mass Findings 10 cm pelvic mass, multi-cystic, tenacious fibrous consistency. Normal right fallopian tube and ovary. Normal-appearing uterus. Description of Procedure The patient was taken to the operating room. She was prepped and draped in the dorsal lithotomy position after induction general anesthesia. A 5 mm incision was made with a scalpel on the abdominal skin in the left upper quadrant of the abdomen. A 5 mm trocar was inserted into the intra-abdominal cavity under direct visualization the scope. In the same fashion a 11 mm left lower quadrant trocar was inserted and a 5 mm infraumbilical trocar was inserted. Pelvic washings were obtained. After the procedure started the left lower quadrant incision was expanded and 8025 mm trocar was inserted. The infundibulopelvic ligament was cauterized and transected the paraovarian tissue was cauterized and transected with LigaSure cautery. The suspensory ligament of the ovary cauterized transected with LigaSure cautery. The left ovary was placed in endobag. It was removed from the endobag and pieces using it is inaccurate, scissors, ring forceps it was tenacious and difficult to manage. The pelvis was irrigated. The pneumoperitoneum was reduced. The trocars were removed. Skin was closed with subcuticular 4 micro. The patient's incisions were covered with Dermabond. She was taken recovery room in stable condition. Sponge lap and needle counts were correct x2. Complications No immediate complications Condition Stable Disposition Same day
[2025-07-08] MEDS: fentaNYL CITRATE INJ (*CRX) 100 MCG/2 ML VIAL 25 MCG IV PUSH ×8 (10:37→11:23)
[2025-07-08] MEDS: oxyCODONE HCL (*CRX) 5 MG TAB IR PO (12:05)
== END 2025-07-08 12:29 | disposition home or self-care (01) ==
PROVIDERS: Visit Provider Obstetrics & Gynecology
PROC: (CPT 49320; principal; 2025-07-08 08:45)
DX: D27.1 Benign neoplasm of left ovary (principal); G89.18 Other acute postprocedural pain; F32.1 Major depressive disorder, single episode, moderate; F12.90 Cannabis use, unspecified, uncomplicated; E66.9 Obesity, unspecified; Z68.36 Body mass index [BMI] 36.0-36.9, adult; Z87.891 Personal history of nicotine dependence; Z80.0 Family history of malignant neoplasm of digestive organs
CPT/HCPCS: 58661; 88108; 88305; A9270; J1100; J1885; J2003; J2250; J2405; J2704; J3010; J7120